=== PATIENT | male | born 1960 | race Caucasian/White ===

== ENCOUNTER 2018-01-23 15:10 | Inpatient (IN) | payer MEDICARE, MEDICAID ==
[2018-01-23 16:53] LABS: % BASOPHILS 1.1 % (0.0-2.0); % EOSINOPHILS 2.4 % (0.0-5.0); % LYMPHOCYTES 21.8 % (20.0-50.0); % MONOCYTES 6.3 % (2.0-10.0); % NEUTROPHILS 68.4 % (40.0-80.0); BASOPHILE ABSOLUTE 0.1 Th/cumm (0-0.2); EOSINOPHILE ABSOLUTE 0.2 Th/cmm (0.1-0.4); HEMATOCRIT 36.2 % (41.0-60); HEMOGLOBIN 12.4 gm/dL (12-16); MEAN CELL VOLUME 88.9 fl (80-99); MEAN CORPUSCULAR HEMOGLOBIN 30.5 pg (26.0-30.0); MEAN CORPUSCULAR HGB CONC 34.3 pg (28.0-36.0); MEAN PLATELET VOLUME 6.7 fl; MONOCYTE ABSOLUTE 0.6 Th/cmm (0.3-1.0); NEUTROPHILE ABSOLUTE 6.4 Th/cmm (1.8-8.0); PLATELET COUNT 278 Th/cmm (150-400); RED BLOOD COUNT 4.08 Mil/cmm (4.30-5.70); WHITE BLOOD COUNT 9.3 Th/cmm (4.8-10.8)
[2018-01-23 17:06] LABS: ALB/GLOB RATIO 1.3 (1.0-1.8); ALKALINE PHOSPHATASE 89 U/L (34-104); ANION GAP 11.7 (7.0-16.0); BILIRUBIN,TOTAL 0.3 mg/dL (0.3-1.0); BUN - UREA NITROGEN 17 mg/dL (7-25); CALCIUM SERUM 9.3 mg/dL (8.6-10.3); CHLORIDE 105 mEq/L (98-107); CREATININE - SERUM 0.8 mg/dL (0.7-1.3); GFR AFRICAN-AMERICAN > 60.0 ml/min (>90); GFR NON AFRICAN-AMERICAN > 60.0 ml/min; GLUCOSE 165 mg/dL (70-105); MAGNESIUM 1.9 mg/dL (1.9-2.7); PHOSPHOROUS 3.2 mg/dL (2.5-5.0); POTASSIUM SERUM 3.7 mEq/L (3.5-5.1); SGOT 20 U/L (13-39); SGPT/ALT 18 U/L (7-52); SODIUM SERUM 137 mEq/L (136-145); TOTAL PROTEIN,SERUM 7.1 gm/dL (6.0-8.3)
--- NOTE | 2018-01-23 18:02 | ED Physician Chart ---
ED Chief Complaint/HPI - Patient Information Date Seen:: 01/23/18 Time Seen:: 15:27 Chief Complaint:: increased agitation, striking at staff History of Present Illness:: increased agitation, striking at staff Allergies:: Allergies Allergy/AdvReac Type Severity Reaction Status Date / Time No Known Allergies Allergy Verified 01/23/18 15:27 Vitals:: Vital Signs - 8 hr 01/23/18 15:27 Temp 98.0 F HR 100 RR 16 BP 169/83 O2 Sat % 100 Historian:: EMS, Medical Records Review:: Nurse's Note Reviewed, Transfer documents Reviewed ED Review of Systems - Review of Systems General/Constitutional: No fever, No chills, No weight loss, No weakness, No diaphoresis, No edema, No loss of appetite Skin: No skin lesions, No rash, No bruising Head: No headache, No light-headedness Eyes: No loss of vision, No pain, No diplopia ENT: No earache, No nasal drainage, No sore throat, No tinnitus Neck: No neck pain, No swelling, No thyromegaly, No stiffness, No mass noted Cardio Vascular: No chest pain, No palpitations, No PND, No orthopnea, No edema Pulmonary: No SOB, No cough, No sputum, No wheezing GI: No nausea, No vomiting, No diarrhea, No pain, No melena, No hematochezia, No constipation, No hematemesis G/U: No dysuria, No frequency, No hematuria Musculoskeletal: No bone or joint pain, No back pain, No muscle pain Endocrine: No polyuria, No polydipsia Psychiatric: Prior psych history, Other (increased agitation) Hematopoietic: No bruising, No lymphadenopathy Allergic/Immuno: No urticaria, No angioedema Neurological: No syncope, No focal symptoms, No weakness, No paresthesia, No headache, No seizure, No dizziness, No confusion, No vertigo ED Past Medical History - Past Medical History Obtainable: No Past Medical History: DM, Other (generalized muscle weakness; folate deficiency anemia) Surgical History: other (acquired absence of R leg) Psychiatricy History: Bipolar Family Medical History - Family Member Mother History Unknown: Yes ED Physical Exam - Physical Examination General/Constitutional: Awake, Well-developed, well-nourished, Alert, No distress, Non-toxic appearing Other Gen/Cons comments:: agitated, required sedation. Head: Atraumatic Eyes: Lids, conjuctiva normal Skin: Nl inspection ENMT: External ears, nose nl, Nasal exam nl, Lips, teeth, gums nl Neck: Nontender, Full ROM w/o pain, No JVD, No nuchal rigidity, No bruit, No mass, No stridor Respiratory: Nl effort/Exclusion, Clear to Auscultation, No Wheeze/Rhonchi/Rales Cardio Vascular: RRR, No murmur, gallop, rubs, NL S1 S2 GI: No tenderness/rebounding/guarding, No organomegaly, No hernia, Normal BS's, Nondistended, No mass/bruits, No McBurney tenderness : No CVA tenderness Other Extremities comments:: R below knee amputation Other Neuro/Psych comments:: agitated Misc: Normal back, No paraspinal tenderness ED Labs/Radiology/EKG Results - Lab Results Results: Laboratory Tests 01/23/18 01/23/18 01/23/18 15:25 16:45 16:45 WBC 9.3 RBC 4.08 L Hgb 12.4 Hct 36.2 L MCV 88.9 MCH 30.5 H MCHC Differential 34.3 RDW 13.0 Plt Count 278 MPV 6.7 Neutrophils % 68.4 Lymphocytes % 21.8 Monocytes % 6.3 Eosinophils % 2.4 Basophils % 1.1 Sodium 137 Potassium 3.7 Chloride 105 Carbon Dioxide 24.0 Anion Gap 11.7 BUN 17 Creatinine 0.8 Est GFR ( Amer) > 60.0 Est GFR (Non-Af Amer) > 60.0 BUN/Creatinine Ratio 21.3 Glucose 165 H POC Glucose 141 H Calcium 9.3 Phosphorus 3.2 Magnesium 1.9 Total Bilirubin 0.3 AST 20 ALT 18 Alkaline Phosphatase 89 Total Protein 7.1 Albumin 4.0 L Globulin 3.1 Albumin/Globulin Ratio 1.3 ED Assessment - Assessment General Assessment: patient finally sedated enough to have blood drawn. Assessment/Comments:: PATIENT MEDICALLY CLEARED FROM A MEDICAL STANDPOINT EXCEPT FOR THE FACT THAT WE DID NOT OBTAIN A URINE ON HIM. ED Septic Shock - . Is Septic Shock (SBP<90, OR Lactate>4 mmol\L) present?: No - <6hrs of presentation: Vital Signs: Vital Signs - 8 hr 10/15/18 15:27 Temp 98.0 F HR 100 RR 16 BP 169/83 O2 Sat % 100 ED Reassessment (Disposition) - Reassessment Reassessment Condition:: Improved - Diagnosis Diagnosis:: Increased agitation. Diabetes mellitus Bipolar Right below knee amputation Muscle weakness. - Patient Disposition Discharge/Transfer:: Acute Care w/in this hosp Admitted to:: [facility] Admitting Medical Physician:: Quang Salazar Admitting Psych Physician:: Sheila Franklin Condition at Disposition:: Stable, Improved
[2018-01-23 19:41] VITALS: BP 108/76
[2018-01-23] MEDS ORDERED: Magnesium Hydroxide (MOM) 30 mL UDC PO PRN (19:42)
[2018-01-23 20:13] LABS: CHOLESTEROL 114 mg/dL (<200); HDL -HIGH DENSITY LIPOPROTEIN 34 mg/dL (23-92); TRIGLYCERIDES 141 mg/dL (<150)
[2018-01-23] MEDS ORDERED: Fleet Enema 135 mL RC PRN (22:28)
--- NOTE | 2018-01-23 22:52 | Psychiatric Evaluation ---
DATE OF SERVICE: 01/23/2018 PSYCHIATRIC INITIAL EVALUATION AND MENTAL STATUS EXAM AGE: 57. SEX: Male. PHYSICIAN: Dr. Franklin. CHIEF COMPLAINT: Agitation and aggressive behavior. HISTORY OF PRESENT ILLNESS: The patient is a 57-year-old male who was transferred from [facility] because of increased agitation and striking out at staff. The patient also has not been able to follow any of staff directions. He also has been increasingly aggressive and striking out at staff. He also has not been compliant with taking medications and in spite of giving him a medication to calm him down, yet he is not able to do so. The patient also has been suspicious and paranoid. PAST PSYCHIATRIC HISTORY: The patient has history of agitation and psychosis and the patient has been taking Seroquel in a dose of 200 mg at bedtime for what seems to be bipolar disorder. PAST MEDICAL HISTORY: The patient has diabetes mellitus that is non-insulin dependent. Also, has a right below-knee amputation. Also, have generalized motor weakness. SOCIAL HISTORY: The patient lives in [facility]. No known alcohol or drug use. No legal issues. ALLERGIES: No known allergies. MENTAL STATUS EXAMINATION: The patient appears his stated age. Anxious. Irritable mood. Flat affect. Thought processes are circumstantial with flight of ideas. The patient denied auditory or visual hallucinations, but seems to be paranoid and delusional. The patient denies any thoughts of suicide or homicide. The patient is alert and oriented to the situation, but not place or person. Intact immediate, recent and remote memories. Poor insight and poor judgment. ASSESSMENT: PRIMARY DIAGNOSES: Bipolar disorder, manic episode, severe, with psychotic features. MEDICAL DIAGNOSES: Diabetes mellitus. Status post below-knee amputation. TREATMENT PLAN: We will monitor the patient's behavior and condition closely. We will start individual as well as milieu psychotherapy. We will continue Seroquel and we will adjust the dose. ESTIMATED LENGTH OF STAY: 5-7 days. THE PATIENT'S STRENGTHS AND WEAKNESSES: The patient's strength is not clear at this time. Weaknesses is his poor impulse control and ineffective coping. AFTER DISCHARGE PLAN: Outpatient treatment and followup, will continue as an outpatient. The patient also will return to [facility]. [facility]# [id number]
--- NOTE | 2018-01-23 22:58 | History & Physical ---
ADMIT DATE: 01/23/2018 HISTORY OF PRESENT ILLNESS: The patient is a 57-year-old male with long history of diabetes mellitus, hypertension, and dementia; admitted to [facility] under Dr. Franklin's service for evaluation and treatment. The patient has been very agitated, psychotic, noncompliant, poor historian. PAST MEDICAL HISTORY: Significant for diabetes mellitus, hypertension, and dementia. PAST SURGICAL HISTORY: No recent surgery. ALLERGIES: None. SOCIAL HISTORY: No smoking, no alcohol. FAMILY HISTORY: Noncontributory. MEDICATIONS: Follow admission reconciliation. REVIEW OF SYSTEMS: RENAL SYSTEM: No history of chronic renal disorder. CARDIOVASCULAR SYSTEM: No coronary artery disease. ENDOCRINE SYSTEM: History of diabetes mellitus. GASTROINTESTINAL SYSTEM: No upper or lower gastrointestinal bleed. NEUROLOGICAL SYSTEM: Seizure disorder. MUSCULOSKELETAL SYSTEM: No muscular dystrophy. HEMATOLOGICAL SYSTEM: No bleeding tendencies. RESPIRATORY SYSTEM: No asthma. GENITOURINARY: No dysuria or hematuria. PHYSICAL EXAMINATION: GENERAL: He is awake, alert, confused. VITAL SIGNS: Temperature 98, heart rate 100, and blood pressure 169/83. HEENT: Normocephalic. Pupils reactive equally to light and accommodation. Sclerae are clear. NECK: Supple. Negative for lymphadenopathy, JVD, or bruit. CHEST: Entry of air bilateral normal. No rhonchi or wheezing. HEART: S1, S2 normal. No murmur, gallop rhythm. ABDOMEN: Soft, bowel sounds positive. EXTREMITIES: No edema. NEUROLOGIC: He is awake, alert, not fully oriented. No focal motor or sensory deficit. Cranial nerves II through XII are intact. LABORATORY DATA: White blood cell 9.3, hemoglobin 12.4, hematocrit 36.2, and platelet is 278. Sodium 137, potassium 3.7, BUN 17, and creatinine 0.8. ASSESSMENT: 1. Diabetes mellitus. 2. Hypertension. 3. Dementia. 4. Psychosis. PLAN: The patient admitted to the hospital under Dr. Franklin's service. Problem addressed during hospitalization is psychosis and dementia. Medical problem addressed at discharge diabetes mellitus and hypertension. The patient is medically stable for activity. Thank you Dr. Franklin for asking us to see your patient. The patient is a full code. JOB# [id number]
[2018-01-24] MEDS: INSULIN ASPART SLIDING SCALE 100 UNITS/ML UNIT SUBQ SCH ×4 (06:39→21:52)
--- NOTE | 2018-01-24 20:49 | Progress Notes ---
DATE: 01/24/2018 SUBJECTIVE: Chart reviewed and the patient interviewed. Also, discussed the patient's condition with the staff and reviewed records and labs. The patient is still extremely irritable and extremely agitated. The patient also is still suspicious and is still easily agitated and still showing poor impulse control. The patient also is confused. He also still needs a lot of redirections. Yesterday, the patient also was aggressive upon admission and the patient was aggressive with the ER staff. Currently, he seems to be slightly calmer and less agitated, but still having flat affect and inappropriate behavior. TREATMENT PLAN: We will monitor the patient's behavior and condition closely. We will also work on behavior modification. I will also continue the patient on Seroquel in a dose of 200 mg at bedtime and will adjust the dose. JOB# [id number]
[2018-01-24] MEDS: Insulin Detemir 100 units/mL 10mL Vial SUBQ SCH (21:52)
--- NOTE | 2018-01-24 22:19 | Internal Medicine Prog Note ---
Internal Medicine Subjective - Subjective Service Date: 01/24/18 Patient seen and examined:: with staff Patient is:: awake, verbal, in bed, talking, confused Per staff patient has:: no adverse event Internal Medicine Objective - Results Result Diagrams: 01/23/18 16:45 01/23/18 16:45 Recent Labs: Laboratory Last Values WBC 9.3 Th/cmm (4.8-10.8) 01/23/18 16:45 RBC 4.08 Mil/cmm (4.30-5.70) L 01/23/18 16:45 Hgb 12.4 gm/dL (12-16) 01/23/18 16:45 Hct 36.2 % (41.0-60) L 01/23/18 16:45 MCV 88.9 fl (80-99) 01/23/18 16:45 MCH 30.5 pg (26.0-30.0) H 01/23/18 16:45 MCHC Differential 34.3 pg (28.0-36.0) 01/23/18 16:45 RDW 13.0 % (11.5-20.0) 01/23/18 16:45 Plt Count 278 Th/cmm (150-400) 01/23/18 16:45 MPV 6.7 fl 01/23/18 16:45 Neutrophils % 68.4 % (40.0-80.0) 01/23/18 16:45 Lymphocytes % 21.8 % (20.0-50.0) 01/23/18 16:45 Monocytes % 6.3 % (2.0-10.0) 01/23/18 16:45 Eosinophils % 2.4 % (0.0-5.0) 01/23/18 16:45 Basophils % 1.1 % (0.0-2.0) 01/23/18 16:45 Sodium 137 mEq/L (136-145) 01/23/18 16:45 Potassium 3.7 mEq/L (3.5-5.1) 01/23/18 16:45 Chloride 105 mEq/L (98-107) 01/23/18 16:45 Carbon Dioxide 24.0 mEq/L (21.0-31.0) 01/23/18 16:45 Anion Gap 11.7 (7.0-16.0) 01/23/18 16:45 BUN 17 mg/dL (7-25) 01/23/18 16:45 Creatinine 0.8 mg/dL (0.7-1.3) 01/23/18 16:45 Est GFR ( Amer) > 60.0 ml/min (>90) 01/23/18 16:45 Est GFR (Non-Af Amer) > 60.0 ml/min 01/23/18 16:45 BUN/Creatinine Ratio 21.3 01/23/18 16:45 Glucose 165 mg/dL (70-105) H 01/23/18 16:45 POC Glucose 134 MG/DL (70 - 105) H 01/24/18 21:52 Calcium 9.3 mg/dL (8.6-10.3) 01/23/18 16:45 Phosphorus 3.2 mg/dL (2.5-5.0) 01/23/18 16:45 Magnesium 1.9 mg/dL (1.9-2.7) 01/23/18 16:45 Total Bilirubin 0.3 mg/dL (0.3-1.0) 01/23/18 16:45 AST 20 U/L (13-39) 01/23/18 16:45 ALT 18 U/L (7-52) 01/23/18 16:45 Alkaline Phosphatase 89 U/L (34-104) 01/23/18 16:45 Total Protein 7.1 gm/dL (6.0-8.3) 01/23/18 16:45 Albumin 4.0 gm/dL (4.2-5.5) L 01/23/18 16:45 Globulin 3.1 gm/dL 01/23/18 16:45 Albumin/Globulin Ratio 1.3 (1.0-1.8) 01/23/18 16:45 Triglycerides 141 mg/dL (<150) 01/23/18 16:45 Cholesterol 114 mg/dL (<200) 01/23/18 16:45 LDL Cholesterol Direct 61 mg/dL (75-193) L 01/23/18 16:45 HDL Cholesterol 34 mg/dL (23-92) 01/23/18 16:45 TSH 1.48 uIU/ml (0.34-5.60) 01/23/18 16:45 - Physical Exam Vitals and I&O: Vital Signs Temp 99.4 F 01/24/18 20:03 Pulse 98 01/24/18 20:03 Resp 18 01/24/18 20:03 BP 125/73 01/24/18 20:03 Pulse Ox 98 01/24/18 20:03 Intake & Output 01/24/18 01/24/18 01/25/18 06:59 18:59 06:59 Intake Total 120 240 Balance 120 240 Weight (lbs) 63.503 kg 63.503 kg Intake: Oral 120 240 Other: # Voids 3 3 # Bowel Movements 0 0 Weight Source Bedscale Bedscale Active Medications: Current Medications Acetaminophen (Tylenol) 650 mg PO Q4HR PRN PRN Reason: Mild Pain / Temp above 100 Stop: 03/24/18 19:41 Bisacodyl (Dulcolax 10 Mg Supp) 10 mg RC Q72H PRN PRN Reason: IF MOM INEFFECTIVE Stop: 03/24/18 22:27 Folic Acid (Folate) 1 mg PO DAILY TIARRA Stop: 03/25/18 08:59 Last Admin: 01/24/18 09:28 Dose: Not Given Insulin Aspart (Novolog Insulin Sliding Scale) 0 units SUBQ ACHS TIARRA; Protocol Stop: 03/25/18 07:29 Last Admin: 01/24/18 21:52 Dose: Not Given Insulin Detemir (Levemir Insulin) 18 units SUBQ HS TIARRA; Protocol Stop: 03/25/18 20:59 Last Admin: 01/24/18 21:52 Dose: Not Given Lorazepam (Ativan) 0.5 mg PO Q4H PRN; Protocol PRN Reason: Anxiety Stop: 03/24/18 19:41 Magnesium Hydroxide (Milk Of Magnesia) 30 ml PO HS PRN PRN Reason: Constipation Quetiapine Fumarate (Seroquel) 200 mg PO HS TIARRA; Protocol Stop: 03/25/18 20:59 Last Admin: 01/24/18 21:49 Dose: 200 mg Sodium Phosphate (Fleet Enema) 135 ml RC PRN PRN PRN Reason: IF DULCOLAX INEFFECTIVE Stop: 03/24/18 22:27 Thiamine HCl (Vitamin B1) 100 mg PO DAILY TIARRA Stop: 03/25/18 08:59 Last Admin: 01/24/18 09:28 Dose: Not Given Zolpidem Tartrate (Ambien) 5 mg PO HS PRN PRN Reason: Insomnia Stop: 03/24/18 19:41 General: demented HEENT: NC/AT, PERRLA, EOMI, anicteric sclerae, throat clear Neck: Supple, No JVD, No thyromegaly, +2 carotid pulse wo bruit, No LAD Cardiovascular: RRR, Normal S1, Normal S2, without murmur Abdomen: soft, non-tender, non-distended Extremities: clear Neurological: no change Internal Medicine Assmt/Plan - Assessment Assessment: 1.DM. 2.HTN. 3.DEMENTIA. 4.PSYCHOSIS - Plan Plan: CONTINUE ON CURRENT MEDICATION AND DIET.
[2018-01-25] MEDS: INSULIN ASPART SLIDING SCALE 100 UNITS/ML UNIT SUBQ SCH ×4 (06:59→20:43)
[2018-01-25] MEDS: Insulin Detemir 100 units/mL 10mL Vial SUBQ SCH (20:43)
--- NOTE | 2018-01-25 21:07 | Internal Medicine Prog Note ---
Internal Medicine Subjective - Subjective Service Date: 01/25/18 Patient seen and examined:: with staff Patient is:: awake, verbal, in bed, talking, confused Per staff patient has:: no adverse event Internal Medicine Objective - Results Result Diagrams: 01/23/18 16:45 01/23/18 16:45 Recent Labs: Laboratory Last Values WBC 9.3 Th/cmm (4.8-10.8) 01/23/18 16:45 RBC 4.08 Mil/cmm (4.30-5.70) L 01/23/18 16:45 Hgb 12.4 gm/dL (12-16) 01/23/18 16:45 Hct 36.2 % (41.0-60) L 01/23/18 16:45 MCV 88.9 fl (80-99) 01/23/18 16:45 MCH 30.5 pg (26.0-30.0) H 01/23/18 16:45 MCHC Differential 34.3 pg (28.0-36.0) 01/23/18 16:45 RDW 13.0 % (11.5-20.0) 01/23/18 16:45 Plt Count 278 Th/cmm (150-400) 01/23/18 16:45 MPV 6.7 fl 01/23/18 16:45 Neutrophils % 68.4 % (40.0-80.0) 01/23/18 16:45 Lymphocytes % 21.8 % (20.0-50.0) 01/23/18 16:45 Monocytes % 6.3 % (2.0-10.0) 01/23/18 16:45 Eosinophils % 2.4 % (0.0-5.0) 01/23/18 16:45 Basophils % 1.1 % (0.0-2.0) 01/23/18 16:45 Sodium 137 mEq/L (136-145) 01/23/18 16:45 Potassium 3.7 mEq/L (3.5-5.1) 01/23/18 16:45 Chloride 105 mEq/L (98-107) 01/23/18 16:45 Carbon Dioxide 24.0 mEq/L (21.0-31.0) 01/23/18 16:45 Anion Gap 11.7 (7.0-16.0) 01/23/18 16:45 BUN 17 mg/dL (7-25) 01/23/18 16:45 Creatinine 0.8 mg/dL (0.7-1.3) 01/23/18 16:45 Est GFR ( Amer) > 60.0 ml/min (>90) 01/23/18 16:45 Est GFR (Non-Af Amer) > 60.0 ml/min 01/23/18 16:45 BUN/Creatinine Ratio 21.3 01/23/18 16:45 Glucose 165 mg/dL (70-105) H 01/23/18 16:45 POC Glucose 134 MG/DL (70 - 105) H 01/24/18 21:52 Calcium 9.3 mg/dL (8.6-10.3) 01/23/18 16:45 Phosphorus 3.2 mg/dL (2.5-5.0) 01/23/18 16:45 Magnesium 1.9 mg/dL (1.9-2.7) 01/23/18 16:45 Total Bilirubin 0.3 mg/dL (0.3-1.0) 01/23/18 16:45 AST 20 U/L (13-39) 01/23/18 16:45 ALT 18 U/L (7-52) 01/23/18 16:45 Alkaline Phosphatase 89 U/L (34-104) 01/23/18 16:45 Total Protein 7.1 gm/dL (6.0-8.3) 01/23/18 16:45 Albumin 4.0 gm/dL (4.2-5.5) L 01/23/18 16:45 Globulin 3.1 gm/dL 01/23/18 16:45 Albumin/Globulin Ratio 1.3 (1.0-1.8) 01/23/18 16:45 Triglycerides 141 mg/dL (<150) 01/23/18 16:45 Cholesterol 114 mg/dL (<200) 01/23/18 16:45 LDL Cholesterol Direct 61 mg/dL (75-193) L 01/23/18 16:45 HDL Cholesterol 34 mg/dL (23-92) 01/23/18 16:45 TSH 1.48 uIU/ml (0.34-5.60) 01/23/18 16:45 - Physical Exam Vitals and I&O: Vital Signs Temp 98 F 01/25/18 20:00 Pulse 90 01/25/18 20:00 Resp 18 01/25/18 20:00 BP 104/56 01/25/18 20:00 Pulse Ox 97 01/25/18 20:00 Intake & Output 01/25/18 01/25/18 01/26/18 06:59 18:59 06:59 Intake Total 240 700 Balance 240 700 Weight (lbs) 63.503 kg Intake: Oral 240 700 Other: # Voids 2 3 # Bowel Movements 1 0 Weight Source Bedscale Active Medications: Current Medications Acetaminophen (Tylenol) 650 mg PO Q4HR PRN PRN Reason: Mild Pain / Temp above 100 Stop: 03/24/18 19:41 Bisacodyl (Dulcolax 10 Mg Supp) 10 mg RC Q72H PRN PRN Reason: IF MOM INEFFECTIVE Stop: 03/24/18 22:27 Folic Acid (Folate) 1 mg PO DAILY TIARRA Stop: 03/25/18 08:59 Last Admin: 01/25/18 09:46 Dose: Not Given Insulin Aspart (Novolog Insulin Sliding Scale) 0 units SUBQ ACHS [facility]; Protocol Stop: 03/25/18 07:29 Last Admin: 01/25/18 20:43 Dose: 2 units Insulin Detemir (Levemir Insulin) 18 units SUBQ HS [facility]; Protocol Stop: 03/25/18 20:59 Last Admin: 01/25/18 20:43 Dose: 18 units Lorazepam (Ativan) 0.5 mg PO Q4H PRN; Protocol PRN Reason: Anxiety Stop: 03/24/18 19:41 Magnesium Hydroxide (Milk Of Magnesia) 30 ml PO HS PRN PRN Reason: Constipation Quetiapine Fumarate (Seroquel) 200 mg PO HS TIARRA; Protocol Stop: 03/25/18 20:59 Last Admin: 01/25/18 20:48 Dose: 200 mg Sodium Phosphate (Fleet Enema) 135 ml RC PRN PRN PRN Reason: IF DULCOLAX INEFFECTIVE Stop: 03/24/18 22:27 Thiamine HCl (Vitamin B1) 100 mg PO DAILY TIARRA Stop: 03/25/18 08:59 Last Admin: 01/25/18 09:46 Dose: Not Given Zolpidem Tartrate (Ambien) 5 mg PO HS PRN PRN Reason: Insomnia Stop: 03/24/18 19:41 General: demented HEENT: NC/AT, PERRLA, EOMI, anicteric sclerae, throat clear Neck: Supple, No JVD, No thyromegaly, +2 carotid pulse wo bruit, No LAD Cardiovascular: RRR, Normal S1, Normal S2, without murmur Abdomen: soft, non-tender, non-distended Extremities: clear Neurological: no change Internal Medicine Assmt/Plan - Assessment Assessment: 1.DM. 2.HTN. 3.DEMENTIA. 4.PSYCHOSIS - Plan Plan: CONTINUE ON CURRENT MEDICATION AND DIET.
[2018-01-26] MEDS: INSULIN ASPART SLIDING SCALE 100 UNITS/ML UNIT SUBQ SCH ×4 (06:49→21:08)
--- NOTE | 2018-01-26 10:43 | Progress Notes ---
DATE: SUBJECTIVE: Chart reviewed and the patient interviewed. Also discussed the patient's condition with the staff and reviewed records and labs. The patient is still confused. The patient also is still agitated at times. The patient also still needs redirections. Yesterday, the patient refused to take morning medications, but he took the Seroquel at night. ASSESSMENT: The patient is still agitated and psychotic. TREATMENT PLAN: Continue to monitor his behavior and his condition closely. Also, continue to work on adjusting psychotropic medications and follow up closely. JOB# [id number]
--- NOTE | 2018-01-26 21:04 | Internal Medicine Prog Note ---
Internal Medicine Subjective - Subjective Service Date: 01/26/18 Patient seen and examined:: with staff Patient is:: awake, verbal, in bed, talking, confused Per staff patient has:: no adverse event Internal Medicine Objective - Results Result Diagrams: 01/23/18 16:45 01/23/18 16:45 Recent Labs: Laboratory Last Values WBC 9.3 Th/cmm (4.8-10.8) 01/23/18 16:45 RBC 4.08 Mil/cmm (4.30-5.70) L 01/23/18 16:45 Hgb 12.4 gm/dL (12-16) 01/23/18 16:45 Hct 36.2 % (41.0-60) L 01/23/18 16:45 MCV 88.9 fl (80-99) 01/23/18 16:45 MCH 30.5 pg (26.0-30.0) H 01/23/18 16:45 MCHC Differential 34.3 pg (28.0-36.0) 01/23/18 16:45 RDW 13.0 % (11.5-20.0) 01/23/18 16:45 Plt Count 278 Th/cmm (150-400) 01/23/18 16:45 MPV 6.7 fl 01/23/18 16:45 Neutrophils % 68.4 % (40.0-80.0) 01/23/18 16:45 Lymphocytes % 21.8 % (20.0-50.0) 01/23/18 16:45 Monocytes % 6.3 % (2.0-10.0) 01/23/18 16:45 Eosinophils % 2.4 % (0.0-5.0) 01/23/18 16:45 Basophils % 1.1 % (0.0-2.0) 01/23/18 16:45 Sodium 137 mEq/L (136-145) 01/23/18 16:45 Potassium 3.7 mEq/L (3.5-5.1) 01/23/18 16:45 Chloride 105 mEq/L (98-107) 01/23/18 16:45 Carbon Dioxide 24.0 mEq/L (21.0-31.0) 01/23/18 16:45 Anion Gap 11.7 (7.0-16.0) 01/23/18 16:45 BUN 17 mg/dL (7-25) 01/23/18 16:45 Creatinine 0.8 mg/dL (0.7-1.3) 01/23/18 16:45 Est GFR ( Amer) > 60.0 ml/min (>90) 01/23/18 16:45 Est GFR (Non-Af Amer) > 60.0 ml/min 01/23/18 16:45 BUN/Creatinine Ratio 21.3 01/23/18 16:45 Glucose 165 mg/dL (70-105) H 01/23/18 16:45 POC Glucose 86 MG/DL (70 - 105) 01/26/18 06:47 Calcium 9.3 mg/dL (8.6-10.3) 01/23/18 16:45 Phosphorus 3.2 mg/dL (2.5-5.0) 01/23/18 16:45 Magnesium 1.9 mg/dL (1.9-2.7) 01/23/18 16:45 Total Bilirubin 0.3 mg/dL (0.3-1.0) 01/23/18 16:45 AST 20 U/L (13-39) 01/23/18 16:45 ALT 18 U/L (7-52) 01/23/18 16:45 Alkaline Phosphatase 89 U/L (34-104) 01/23/18 16:45 Total Protein 7.1 gm/dL (6.0-8.3) 01/23/18 16:45 Albumin 4.0 gm/dL (4.2-5.5) L 01/23/18 16:45 Globulin 3.1 gm/dL 01/23/18 16:45 Albumin/Globulin Ratio 1.3 (1.0-1.8) 01/23/18 16:45 Triglycerides 141 mg/dL (<150) 01/23/18 16:45 Cholesterol 114 mg/dL (<200) 01/23/18 16:45 LDL Cholesterol Direct 61 mg/dL (75-193) L 01/23/18 16:45 HDL Cholesterol 34 mg/dL (23-92) 01/23/18 16:45 TSH 1.48 uIU/ml (0.34-5.60) 01/23/18 16:45 - Physical Exam Vitals and I&O: Vital Signs Temp 98.1 F 01/26/18 20:19 Pulse 85 01/26/18 20:19 Resp 19 01/26/18 20:19 BP 121/72 01/26/18 20:19 Pulse Ox 97 01/26/18 20:19 Intake & Output 01/26/18 01/26/18 01/27/18 06:59 18:59 06:59 Intake Total 120 240 Output Total 2 Balance 120 238 Intake: Oral 120 240 Output: Stool 1 Urine/Stool Mix 1 Other: # Voids 3 1 Active Medications: Current Medications Acetaminophen (Tylenol) 650 mg PO Q4HR PRN PRN Reason: Mild Pain / Temp above 100 Stop: 03/24/18 19:41 Bisacodyl (Dulcolax 10 Mg Supp) 10 mg RC Q72H PRN PRN Reason: IF MOM INEFFECTIVE Stop: 03/24/18 22:27 Folic Acid (Folate) 1 mg PO DAILY TIARRA Stop: 03/25/18 08:59 Last Admin: 01/26/18 09:39 Dose: 1 mg Insulin Aspart (Novolog Insulin Sliding Scale) 0 units SUBQ ACHS [facility]; Protocol Stop: 03/25/18 07:29 Last Admin: 01/26/18 17:20 Dose: Not Given Insulin Detemir (Levemir Insulin) 18 units SUBQ HS [facility]; Protocol Stop: 03/25/18 20:59 Last Admin: 01/25/18 20:43 Dose: 18 units Lorazepam (Ativan) 0.5 mg PO Q4H PRN; Protocol PRN Reason: Anxiety Stop: 03/24/18 19:41 Magnesium Hydroxide (Milk Of Magnesia) 30 ml PO HS PRN PRN Reason: Constipation Quetiapine Fumarate (Seroquel) 200 mg PO HS [facility]; Protocol Stop: 03/25/18 20:59 Last Admin: 01/25/18 20:48 Dose: 200 mg Sodium Phosphate (Fleet Enema) 135 ml RC PRN PRN PRN Reason: IF DULCOLAX INEFFECTIVE Stop: 03/24/18 22:27 Thiamine HCl (Vitamin B1) 100 mg PO DAILY TIARRA Stop: 03/25/18 08:59 Last Admin: 01/26/18 09:39 Dose: 100 mg Zolpidem Tartrate (Ambien) 5 mg PO HS PRN PRN Reason: Insomnia Stop: 12/14/18 19:41 General: demented HEENT: NC/AT, PERRLA, EOMI, anicteric sclerae, throat clear Neck: Supple, No JVD, No thyromegaly, +2 carotid pulse wo bruit, No LAD Cardiovascular: RRR, Normal S1, Normal S2, without murmur Abdomen: soft, non-tender, non-distended Extremities: clear Neurological: no change Internal Medicine Assmt/Plan - Assessment Assessment: 1.DM. 2.HTN. 3.DEMENTIA. 4.PSYCHOSIS - Plan Plan: CONTINUE ON CURRENT MEDICATION AND DIET. Nutritional Asmnt/Malnutr-PDOC - Dietary Evaluation Malnutrition Findings (Please click <Entered> for more info): Nutritional Asmnt/Malnutrition Start: 01/26/18 14: 11 Text: Status: Complete Freq: Protocol: Document 01/26/18 14:11 CM (Rec: 01/26/18 14:12 CM [email or web address]) Nutritional Asmnt/Malnutrition Patient General Information Nutritional Screening Moderate Risk Diagnosis psychosis Pertinent Medical Hx/Surgical Hx DM, muscle weakness, folate deficiency anemia, bipolar, right BKA, HTN, dementia Subjective Information Pt observed to have finished 80-90% of lunch at time of visit. Pt's sri lankan speaking; RD unable to communicate d/t language barrier. Nursing noted PO intake: 100%. Current Diet Order/ Nutrition Support CCHO Pertinent Medications dulcolax, folate, novolog, levemir, MOM, Vit B1 Pertinent Labs 01/24: POC 134 01/23: POC 141, glucose 165, Alb 4.0 Nutritional Hx/Data Height 1.75 m Height (Calculated Centimeters) 175.3 Current Weight (lbs) 63.503 kg Weight (Calculated Kilograms) 63.5 Weight (Calculated Grams) 41548.9 [place] Body Weight 151 lb (adj for right CADE) Body Mass Index (BMI) 20.7 Weight Status Approriate GI Symptoms GI Symptoms None Last BM 01/25 Difficult in: None Food Allergies No Skin Integrity/Comment: right MOHAMUD pau 16 Estimated Nutritional Goals BEE in Kcals: Using Current wt Calories/Kcals/Kg 25-30 Kcals Calculated 1151-5058 Protein: Using Current wt Protein g/k.8-1 Protein Calculated 51-64 g Fluid: ml 0843-5960 (1 ml/kcal) Nutritional Problem No current Nutrition Prob Problem no nutrition dx at this time Malnutrition Alert Is there a minimum of two criteria No selected? Query Text:Check all the applicable criteria. A minimum of two criteria are recommended for diagnosis of either severe or non-severe malnutrition. Malnutrition Related to Morbid Obesity Malnutrition related to morbid obesity No Intervention/Recommendation Comments 1. Continue with CCHO diet as ordered d/t elevated bs and hx of DM. MD to manage insulin regimen for optimal glycemic control 2. Monitor PO intake, wt, labs and skin integrity 3. F/U as low risk in 7 days, 02/02 Expected Outcomes/Goals Expected Outcomes/Goals 1. PO intake to meet at least 75% of nutritional needs 2. Wt stability, skin to remain intact, and nutrition related labs to approach normal limits Reviewed by Mary Gutierrez RD
[2018-01-26] MEDS: Insulin Detemir 100 units/mL 10mL Vial SUBQ SCH (21:08)
--- NOTE | 2018-01-26 23:52 | Progress Notes ---
DATE: 01/26/2018 SUBJECTIVE: Chart reviewed and the patient interviewed. Also discussed the patient's condition with the staff and reviewed records and labs. The patient is still anxious and he is still pacing up and down the unit. Also, he still needs redirections. Otherwise, no major behavioral problems and has been compliant with taking his medications. PLAN: Plan to continue monitoring behavior and condition. Continue to follow up. [facility]# [id number]
[2018-01-27] MEDS: INSULIN ASPART SLIDING SCALE 100 UNITS/ML UNIT SUBQ SCH ×2 (06:30→12:18)
--- NOTE | 2018-01-27 10:27 | Discharge Summary ---
DATE OF DISCHARGE: 01/27/2018 DATE OF DISCHARGE: 01/27/2018. AGE: 57. SEX: Male. PHYSICIAN: Dr. Franklin. FINAL DIAGNOSIS: PRIMARY DIAGNOSIS: Bipolar disorder, manic episode, severe, with psychotic features. REASON FOR HOSPITALIZATION: The patient was admitted to the hospital because of increased agitation and also striking out at staff. HOSPITAL COURSE: The patient continued to be in irritable and angry mood. The patient also was having aggressive behavior upon admission. The patient was given Seroquel in a dose of 200 mg at bedtime that helped the patient's agitation to be better. The patient was not as aggressive and was easier to follow directions and the patient was discharged from the hospital. PHYSICAL EXAMINATION: Showed no major medical problems. AFTER DISCHARGE PLANS: The patient discharged from the hospital with plans to follow him in [facility]. EXPECTED OUTCOME AFTER DISCHARGE: Fair if the patient continues to take the psychotropic medications and follow up with discharge plans. [facility]# [id number]
== END 2018-01-27 16:50 | DRG 885 ==
LOC: ER 15:10 → GERO 17:55
PROVIDERS: ADMIT Psychiatry & Neurology Psychiatry; ATTEND Psychiatry & Neurology Psychiatry
DX: F31.2 Bipolar disorder, current episode manic severe with psychotic features (principal); E11.9 Type 2 diabetes mellitus without complications; I10 Essential (primary) hypertension; F03.90 Unspecified dementia, unspecified severity, without behavioral disturbance, psychotic disturbance, mood disturbance, and anxiety; F29 Unspecified psychosis not due to a substance or known physiological condition; D50.9 Iron deficiency anemia, unspecified; M62.81 Muscle weakness (generalized); Z89.511 Acquired absence of right leg below knee
CPT/HCPCS: 36415-UA; 80053-TC; 80061-TC; 82948-90; 83036-90; 83735-TC; 84100-TC; 84443-TC; 85025-TC; J1815; J2060

== ENCOUNTER 2018-05-10 18:16 | Inpatient (IN) | payer MEDICARE, MEDICAID ==
--- NOTE | 2018-05-10 18:23 | ED Physician Chart ---
ED Chief Complaint/HPI - Patient Information Date Seen:: 05/10/18 Time Seen:: 18:10 Chief Complaint:: Agitation History of Present Illness:: onset x 3 days of agitation and hostile behavior; no report of trauma, H/As, neck pain, SIs, C/P, SOB, Abd. Pain, A/N/V/D/C, fever, chills, or urinary s/s Allergies:: Allergies Allergy/AdvReac Type Severity Reaction Status Date / Time No Known Allergies Allergy Verified 01/23/18 15:27 Historian:: Patient, EMS Review:: Nurse's Note Reviewed, Old Chart Reviewed, EMS run form Reviewed ED Review of Systems - Review of Systems General/Constitutional: No fever, No chills, No weight loss, No weakness, No diaphoresis, No edema, No loss of appetite Skin: No skin lesions, No rash, No bruising Head: No headache, No light-headedness Eyes: No loss of vision, No pain, No diplopia ENT: No earache, No nasal drainage, No sore throat, No tinnitus Neck: No neck pain, No swelling, No thyromegaly, No stiffness, No mass noted Cardio Vascular: No chest pain, No palpitations, No PND, No orthopnea, No edema Pulmonary: No SOB, No cough, No sputum, No wheezing GI: No nausea, No vomiting, No diarrhea, No pain, No melena, No hematochezia, No constipation, No hematemesis G/U: No dysuria, No frequency, No hematuria, No nacturia Musculoskeletal: No bone or joint pain, No back pain, No muscle pain Endocrine: No polyuria, No polydipsia Psychiatric: Prior psych history, Depression, Anxiety, No suicidal ideation, No homicidal ideation, No auditory hallucination, No visual hallucination Hematopoietic: No bruising, No lymphadenopathy Allergic/Immuno: No urticaria, No angioedema Neurological: No syncope, No focal symptoms, No weakness, No paresthesia, No headache, No seizure, No dizziness, No confusion, No vertigo ED Past Medical History - Past Medical History Obtainable: Yes Past Medical History: HTN, DM, Dyslipidemia, PUD/GERD Family History: Diabetes Melitus, HTN Social History: Non Smoker, No Alcohol, No Drug Use, Single, Care Facility Surgical History: None Psychiatricy History: Bipolar Medication: Reviewed Family Medical History - Family Member Mother History Unknown: Yes ED Physical Exam - Physical Examination General/Constitutional: Awake, Well-developed, well-nourished, Alert, No distress, GCS 15, Non-toxic appearing, Ambulatory Head: Atraumatic Eyes: Lids, conjuctiva normal, PERRL, EOMI Skin: Nl inspection, No rash, No skin lesions, No ecchymosis, Well hydrated, No lymphadenopathy ENMT: External ears, nose nl, TM canals nl, Nasal exam nl, Lips, teeth, gums nl , Oropharynx nl, Tonsils nl Neck: Nontender, Full ROM w/o pain, No JVD, No nuchal rigidity, No bruit, No mass, No stridor Respiratory: Nl effort/Exclusion, Clear to Auscultation, No Wheeze/Rhonchi/Rales Cardio Vascular: RRR, No murmur, gallop, rubs, NL S1 S2, Carotid/Femoral/Distal pulses equal bilaterally GI: No tenderness/rebounding/guarding, No organomegaly, No hernia, Normal BS's, Nondistended, No mass/bruits, No McBurney tenderness, Rectum exam nl Other GI comments:: no pulsatile masses : No CVA tenderness Extremities: No tenderness or effusion, Full ROM, normal strength in all extremities, No edema, Normal digits & nails Neuro/Psych: Alert/oriented, DTR's symmetric, Normal sensory exam, Normal motor strength, Judgement/insight normal, Mood normal, Normal gait, No focal deficits Other Neuro/Psych comments:: + Psychomotor Agitation; no SIs; Mood/Affect: Labile Misc: Normal back, No paraspinal tenderness ED Labs/Radiology/EKG Results - Lab Results Comments:: Reviewed - EKG Interpretations Comments:: pt refused EKG ED Septic Shock - . Is Septic Shock (SBP<90, OR Lactate>4 mmol\L) present?: No ED Reassessment (Disposition) - Reassessment Reassessment Condition:: Improved - Diagnosis Diagnosis:: Agitation; Psychosis; Medical Clearance; Bipolar Disorder - Aftercare/Follow up Instructions Aftercare/Follow-Up Instructions:: Counseled pt regarding lab results/diagnosis & need follow up, Counseled pt & family regarding lab results/diagnosis & need follow up - Patient Disposition Discharge/Transfer:: Acute Care w/in this hosp Admitted to:: [facility] Condition at Disposition:: Stable, Improved
[2018-05-10] MEDS ORDERED: Haloperidol Lactate 5 mg/mL 1mL Vial IM STA (18:37)
[2018-05-10] MEDS ORDERED: Haloperidol Lactate 5 mg/mL 1mL Vial ONE (18:41)
[2018-05-10 20:38] LABS: % BASOPHILS 0.8 % (0.0-2.0); % EOSINOPHILS 2.8 % (0.0-5.0); % LYMPHOCYTES 21.6 % (20.0-50.0); % MONOCYTES 7.9 % (2.0-10.0); % NEUTROPHILS 66.9 % (40.0-80.0); BASOPHILE ABSOLUTE 0.1 Th/cumm (0-0.2); EOSINOPHILE ABSOLUTE 0.3 Th/cmm (0.1-0.4); HEMATOCRIT 38.4 % (41.0-60); HEMOGLOBIN 12.7 gm/dL (12-16); MEAN CORPUSCULAR HEMOGLOBIN 29.2 pg (26.0-30.0); MEAN CORPUSCULAR HGB CONC 33.2 pg (28.0-36.0); MEAN PLATELET VOLUME 6.6 fl; MONOCYTE ABSOLUTE 0.7 Th/cmm (0.3-1.0); NEUTROPHILE ABSOLUTE 6.2 Th/cmm (1.8-8.0); PLATELET COUNT 259 Th/cmm (150-400); RED BLOOD COUNT 4.36 Mil/cmm (4.30-5.70); RED CELL DISTRIBUTION WIDTH 12.6 % (11.5-20.0); WHITE BLOOD COUNT 9.3 Th/cmm (4.8-10.8)
[2018-05-10 20:56] LABS: ALB/GLOB RATIO 1.4 (1.0-1.8); ALBUMIN 4.1 gm/dL (4.2-5.5); ALKALINE PHOSPHATASE 80 U/L (34-104); ANION GAP 12.9 (7.0-16.0); BILIRUBIN,TOTAL 0.4 mg/dL (0.3-1.0); BUN - UREA NITROGEN 21 mg/dL (7-25); CALCIUM SERUM 9.9 mg/dL (8.6-10.3); CARBON DIOXIDE 26.6 mEq/L (21.0-31.0); CHLORIDE 104 mEq/L (98-107); CHOLESTEROL 128 mg/dL (<200); GFR AFRICAN-AMERICAN > 60.0 ml/min (>90); GFR NON AFRICAN-AMERICAN > 60.0 ml/min; GLUCOSE 161 mg/dL (70-105); HDL -HIGH DENSITY LIPOPROTEIN 42 mg/dL (23-92); POTASSIUM SERUM 4.5 mEq/L (3.5-5.1); SALICYLATES (ASPIRIN) < 25.0 mg/L (30.0-100.0); SGOT 20 U/L (13-39); SGPT/ALT 16 U/L (7-52); SODIUM SERUM 139 mEq/L (136-145); TRIGLYCERIDES 86 mg/dL (<150)
[2018-05-10 22:26] LABS: ACETAMINOPHEN < 10.0 ug/mL (10.0-30.0)
[2018-05-11 00:16] VITALS: BP 113/78
[2018-05-11] MEDS ORDERED: Maalox 30 mL Cup PO PRN (00:16)
[2018-05-11] MEDS ORDERED: Magnesium Hydroxide (MOM) 30 mL UDC PO PRN (00:51)
--- NOTE | 2018-05-11 20:24 | History & Physical ---
ADMIT DATE: 05/10/2018 HISTORY OF PRESENT ILLNESS: The patient is a 57-year-old male who admitted to our [facility] under Dr. Franklin's service for the treatment. The patient has been psychotic and agitated. No fever, no chills, no nausea, no vomiting. PAST MEDICAL HISTORY: Significant for diabetes mellitus, degenerative joint disease, constipation, dementia, and psychosis. PAST SURGICAL HISTORY: No recent surgery. ALLERGIES: None. SOCIAL HISTORY: No smoking, no alcohol, no drugs. FAMILY HISTORY: Noncontributory. MEDICATIONS: Follow admission reconciliation. REVIEW OF SYSTEMS: RENAL SYSTEM: No history of chronic renal disorder. CARDIOVASCULAR SYSTEM: No coronary artery disease. ENDOCRINE: He has history of diabetes mellitus. GASTROINTESTINAL SYSTEM: No upper or lower gastrointestinal bleed. NEUROLOGICAL SYSTEM: Seizure disorder. SKELETOMUSCULAR SYSTEM: No muscular dystrophy. HEMATOLOGICAL SYSTEM: No bleeding tendency. RESPIRATORY SYSTEM: No asthma. GENITOURINARY: No dysuria or hematuria. PHYSICAL EXAMINATION: GENERAL: He is awake, not coherent. VITAL SIGNS: Temperature is 97.6, heart rate 79, and blood pressure 113/78. HEENT: Normocephalic. Pupils reactive to light and accommodation. Sclerae clear. NECK: Supple. Negative for lymphadenopathy, JVD, or bruit. CHEST: Entry of air bilateral normal. No rhonchi or wheezing. HEART: S1, S2 normal. No murmur or gallop rhythm. ABDOMEN: Soft, bowel sounds positive. EXTREMITIES: No edema. NEUROLOGIC: Awake, alert, mildly confused. No focal motor or sensory deficit. Cranial nerves II through XII intact. LABORATORY DATA: White blood cell 9.3, hemoglobin 12.7, hematocrit 38.4, and platelet 259. Sodium 139, potassium 4.5, BUN 21, and creatinine 1.0. ASSESSMENT: 1. Diabetes mellitus. 2. Degenerative joint disease. 3. Dementia. 4. Psychosis. PLAN: The patient admitted to the hospital under Dr. Franklin's service. Medical problems addressed during hospitalization is psychosis. Medical problems addressed at discharge, diabetes mellitus, depression, and degenerative joint disease. The patient is medically stable for activity. Thank you Dr. Franklin for asking me to see your patient. The patient is a full code. JOB# [id number]
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
--- NOTE | 2018-05-12 21:44 | Internal Medicine Prog Note ---
Internal Medicine Subjective - Subjective Service Date: 05/12/18 Patient seen and examined:: with staff Patient is:: awake, verbal, in bed, confused Per staff patient has:: no adverse event Internal Medicine Objective - Results Result Diagrams: 05/10/18 18:00 05/10/18 18:19 Recent Labs: Laboratory Last Values WBC 9.3 Th/cmm (4.8-10.8) 05/10/18 18:00 RBC 4.36 Mil/cmm (4.30-5.70) 05/10/18 18:00 Hgb 12.7 gm/dL (12-16) 05/10/18 18:00 Hct 38.4 % (41.0-60) L 05/10/18 18:00 MCV 88.0 fl (80-99) 05/10/18 18:00 MCH 29.2 pg (26.0-30.0) 05/10/18 18:00 MCHC Differential 33.2 pg (28.0-36.0) 05/10/18 18:00 RDW 12.6 % (11.5-20.0) 05/10/18 18:00 Plt Count 259 Th/cmm (150-400) 05/10/18 18:00 MPV 6.6 fl 05/10/18 18:00 Neutrophils % 66.9 % (40.0-80.0) 05/10/18 18:00 Lymphocytes % 21.6 % (20.0-50.0) 05/10/18 18:00 Monocytes % 7.9 % (2.0-10.0) 05/10/18 18:00 Eosinophils % 2.8 % (0.0-5.0) 05/10/18 18:00 Basophils % 0.8 % (0.0-2.0) 05/10/18 18:00 Sodium 139 mEq/L (136-145) 05/10/18 18:19 Potassium 4.5 mEq/L (3.5-5.1) 05/10/18 18:19 Chloride 104 mEq/L (98-107) 05/10/18 18:19 Carbon Dioxide 26.6 mEq/L (21.0-31.0) 05/10/18 18: Anion Gap 12.9 (7.0-16.0) 05/10/18 18:19 BUN 21 mg/dL (7-25) 05/10/18 18:19 Creatinine 1.0 mg/dL (0.7-1.3) 05/10/18 18:19 Est GFR ( Amer) > 60.0 ml/min (>90) 05/10/18 18:19 Est GFR (Non-Af Amer) > 60.0 ml/min 05/10/18 18:19 BUN/Creatinine Ratio 21.0 05/10/18 18:19 Glucose 161 mg/dL (70-105) H 05/10/18 18:19 Calcium 9.9 mg/dL (8.6-10.3) 05/10/18 18: Total Bilirubin 0.4 mg/dL (0.3-1.0) 05/10/18 18: AST 20 U/L (13-39) 05/10/18 18:19 ALT 16 U/L (7-52) 05/10/18 18:19 Alkaline Phosphatase 80 U/L (34-104) 05/10/18 18:19 Troponin I < 0.01 ng/mL (0.01-0.05) L 05/10/18 18:19 Total Protein 7.0 gm/dL (6.0-8.3) 05/10/18 18: Albumin 4.1 gm/dL (4.2-5.5) L 05/10/18 18:19 Globulin 2.9 gm/dL 05/10/18 18:19 Albumin/Globulin Ratio 1.4 (1.0-1.8) 05/10/18 18:19 Triglycerides 86 mg/dL (<150) 05/10/18 18:19 Cholesterol 128 mg/dL (<200) 05/10/18 18:19 LDL Cholesterol Direct 90 mg/dL (75-193) 05/10/18 18:19 HDL Cholesterol 42 mg/dL (23-92) 05/10/18 18:19 TSH 3.96 uIU/ml (0.34-5.60) 05/10/18 18:19 Salicylates < 25.0 mg/L (30.0-100.0) L 05/10/18 18:19 Acetaminophen < 10.0 ug/mL (10.0-30.0) L 05/10/18 18:19 Ethyl Alcohol < 10 mg/dL (0-10) 05/10/18 18:19 RPR NONREACTIVE (NONREACTIVE) 05/10/18 18:19 - Physical Exam Vitals and I&O: Vital Signs Temp 97.8 F 05/12/18 14:00 Pulse 101 05/12/18 14:00 Resp 18 05/12/18 19:49 BP 119/73 05/12/18 14:00 Pulse Ox 96 05/12/18 14:00 Intake & Output 05/12/18 05/12/18 05/13/18 06:59 18:59 06:59 Intake Total 360 1200 Balance 360 1200 Intake: Oral 360 1200 Other: # Voids 2 # Bowel Movements 0 1 Stool Characteristics Formed Active Medications: Current Medications Acetaminophen (Tylenol) 650 mg PO Q4HR PRN PRN Reason: Mild Pain / Temp above 100 Stop: 07/10/18 00:15 Al Hydrox/Mg Hydrox/Simethicone (Maalox) 30 ml PO Q4HR PRN PRN Reason: GI DISTRESS Stop: 07/10/18 00:15 Bisacodyl (Dulcolax 10 Mg Supp) 10 mg RC DAILY PRN PRN Reason: Constipation Stop: 07/10/18 00:40 Clonazepam (Klonopin) 1 mg PO BID [facility]; Protocol Stop: 07/11/18 08:59 Last Admin: 05/12/18 16:54 Dose: 1 mg Folic Acid (Folate) 1 mg PO DAILY TIARRA Stop: 07/10/18 08:59 Last Admin: 05/12/18 09:51 Dose: Not Given Lorazepam (Ativan) 0.5 mg PO Q4HR PRN; Protocol PRN Reason: Anxiety Stop: 06/10/18 00:15 Magnesium Hydroxide (Milk Of Magnesia) 30 ml PO HS PRN PRN Reason: Constipation Stop: 07/10/18 00:50 Quetiapine Fumarate (Seroquel) 50 mg PO BID [facility]; Protocol Stop: 07/10/18 08:59 Last Admin: 05/12/18 16:54 Dose: 50 mg Quetiapine Fumarate (Seroquel) 300 mg PO HS [facility]; Protocol Stop: 07/11/18 20:59 Last Admin: 05/12/18 21:02 Dose: 300 mg Thiamine HCl (Vitamin B1) 100 mg PO DAILY [facility] Stop: 07/10/18 08:59 Last Admin: 05/12/18 09:51 Dose: Not Given Zolpidem Tartrate (Ambien) 5 mg PO HS PRN PRN Reason: Insomnia Stop: 07/10/18 00:15 Last Admin: 05/12/18 21:02 Dose: 5 mg General: alert, demented HEENT: NC/AT, PERRLA, EOMI, anicteric sclerae, throat clear Neck: Supple, No JVD, No thyromegaly, +2 carotid pulse wo bruit, No LAD Lungs: CTAB Cardiovascular: RRR, Normal S1, Normal S2, without murmur Abdomen: soft, non-tender, non-distended Extremities: clear Neurological: no change Internal Medicine Assmt/Plan - Assessment Assessment: 1.DM. 2.DJD. 3.DEMENTIA. 4.PSYCHOSIS. - Plan Plan: CONTINUE ON CURRENT MEDICATION AND DIET.
--- NOTE | 2018-05-13 10:02 | Progress Notes ---
DATE: SUBJECTIVE: Chart reviewed and the patient interviewed. Also discussed the patient's condition with the staff and reviewed records and labs. The patient is still confused and agitated. The patient also is still during the interview, was using foul language and rambling in Swedish language. The patient also is resisting care and he is refusing to get her vital signs taken and uncooperative with the nursing staff. Otherwise, the patient is compliant with taking medications with no side effects of medication. ASSESSMENT: The patient is still psychotic and is still agitated and uncooperative. TREATMENT PLAN: We will increase Seroquel to 50 mg twice a day and 300 mg at bedtime. Also, we will add Klonopin 1 mg twice a day and we will continue to monitor his behavior and his condition closely and work on his aggressive behavior and behavior modification. JOB# [id number]
--- NOTE | 2018-05-13 22:00 | General Progress Note ---
Subjective - Review of Systems Service Date: 05/13/18 Subjective: resting comfortably no distress Objective - Results Result Diagrams: 05/10/18 18:00 05/10/18 18: Recent Labs: Laboratory Last Values WBC 9.3 Th/cmm (4.8-10.8) 05/10/18 18:00 RBC 4.36 Mil/cmm (4.30-5.70) 05/10/18 18:00 Hgb 12.7 gm/dL (12-16) 05/10/18 18:00 Hct 38.4 % (41.0-60) L 05/10/18 18:00 MCV 88.0 fl (80-99) 05/10/18 18:00 MCH 29.2 pg (26.0-30.0) 05/10/18 18:00 MCHC Differential 33.2 pg (28.0-36.0) 05/10/18 18:00 RDW 12.6 % (11.5-20.0) 05/10/18 18:00 Plt Count 259 Th/cmm (150-400) 05/10/18 18:00 MPV 6.6 fl 05/10/18 18:00 Neutrophils % 66.9 % (40.0-80.0) 05/10/18 18:00 Lymphocytes % 21.6 % (20.0-50.0) 05/10/18 18:00 Monocytes % 7.9 % (2.0-10.0) 05/10/18 18:00 Eosinophils % 2.8 % (0.0-5.0) 05/10/18 18:00 Basophils % 0.8 % (0.0-2.0) 05/10/18 18:00 Sodium 139 mEq/L (136-145) 05/10/18 18:19 Potassium 4.5 mEq/L (3.5-5.1) 05/10/18 18: Chloride 104 mEq/L (98-107) 05/10/18 18:19 Carbon Dioxide 26.6 mEq/L (21.0-31.0) 05/10/18 18:19 Anion Gap 12.9 (7.0-16.0) 05/10/18 18: BUN 21 mg/dL (7-25) 05/10/18 18: Creatinine 1.0 mg/dL (0.7-1.3) 05/10/18 18:19 Est GFR ( Amer) > 60.0 ml/min (>90) 05/10/18 18: Est GFR (Non-Af Amer) > 60.0 ml/min 05/10/18 18:19 BUN/Creatinine Ratio 21.0 05/10/18 18:19 Glucose 161 mg/dL (70-105) H 05/10/18 18:19 Calcium 9.9 mg/dL (8.6-10.3) 05/10/18 18:19 Total Bilirubin 0.4 mg/dL (0.3-1.0) 05/10/18 18: AST 20 U/L (13-39) 05/10/18 18: ALT 16 U/L (7-52) 05/10/18 18: Alkaline Phosphatase 80 U/L (34-104) 05/10/18 18: Troponin I < 0.01 ng/mL (0.01-0.05) L 05/10/18 18: Total Protein 7.0 gm/dL (6.0-8.3) 05/10/18 18: Albumin 4.1 gm/dL (4.2-5.5) L 05/10/18 18: Globulin 2.9 gm/dL 05/10/18 18: Albumin/Globulin Ratio 1.4 (1.0-1.8) 05/10/18 18:19 Triglycerides 86 mg/dL (<150) 05/10/18 18:19 Cholesterol 128 mg/dL (<200) 05/10/18 18:19 LDL Cholesterol Direct 90 mg/dL (75-193) 05/10/18 18:19 HDL Cholesterol 42 mg/dL (23-92) 05/10/18 18:19 TSH 3.96 uIU/ml (0.34-5.60) 05/10/18 18:19 Salicylates < 25.0 mg/L (30.0-100.0) L 05/10/18 18:19 Acetaminophen < 10.0 ug/mL (10.0-30.0) L 05/10/18 18:19 Ethyl Alcohol < 10 mg/dL (0-10) 05/10/18 18:19 RPR NONREACTIVE (NONREACTIVE) 05/10/18 18:19 - Physical Exam Vitals and I&O: Vital Signs Temp 97.6 F 05/13/18 14:30 Pulse 90 05/13/18 14:30 Resp 18 05/13/18 14:30 BP 142/70 05/13/18 14:30 Pulse Ox 98 05/13/18 14:30 Intake & Output 05/13/18 05/13/18 05/14/18 06:59 18:59 06:59 Intake Total 1200 Balance 1200 Intake: Oral 1200 Other: # Bowel Movements 1 Stool Characteristics Formed Active Medications: Current Medications Acetaminophen (Tylenol) 650 mg PO Q4HR PRN PRN Reason: Mild Pain / Temp above 100 Stop: 07/10/18 00:15 Al Hydrox/Mg Hydrox/Simethicone (Maalox) 30 ml PO Q4HR PRN PRN Reason: GI DISTRESS Stop: 07/10/18 00:15 Bisacodyl (Dulcolax 10 Mg Supp) 10 mg RC DAILY PRN PRN Reason: Constipation Stop: 07/10/18 00:40 Clonazepam (Klonopin) 1 mg PO BID [facility]; Protocol Stop: 07/11/18 08:59 Last Admin: 05/13/18 16:19 Dose: 1 mg Folic Acid (Folate) 1 mg PO DAILY [facility] Stop: 07/10/18 08:59 Last Admin: 05/13/18 09:08 Dose: 1 mg Lorazepam (Ativan) 0.5 mg PO Q4HR PRN; Protocol PRN Reason: Anxiety Stop: 06/10/18 00:15 Magnesium Hydroxide (Milk Of Magnesia) 30 ml PO HS PRN PRN Reason: Constipation Stop: 07/10/18 00:50 Quetiapine Fumarate (Seroquel) 50 mg PO BID [facility]; Protocol Stop: 07/10/18 08:59 Last Admin: 05/13/18 16:19 Dose: 50 mg Quetiapine Fumarate (Seroquel) 300 mg PO HS [facility]; Protocol Stop: 07/11/18 20:59 Last Admin: 05/13/18 21:05 Dose: 300 mg Thiamine HCl (Vitamin B1) 100 mg PO DAILY [facility] Stop: 07/10/18 08:59 Last Admin: 05/13/18 09:08 Dose: 100 mg Zolpidem Tartrate (Ambien) 5 mg PO HS PRN PRN Reason: Insomnia Stop: 07/10/18 00:15 Last Admin: 05/13/18 21:06 Dose: 5 mg General: No acute distress HEENT: Atraumatic, PERRLA Neck: Supple, JVD, Thyromegaly Cardiovascular: Regular rate, Normal S1, Normal S2 Lungs: Clear to auscultation Abdomen: Bowel sounds, Soft Assessment/Plan - Assessment Assessment: 1.DM. 2.DJD. 3.DEMENTIA. 4.PSYCHOSIS. - Plan Plan: continue current treatment Nutritional Asmnt/Malnutr-PDOC - Dietary Evaluation Malnutrition Findings (Please click <Entered> for more info): Nutritional Asmnt/Malnutrition Start: 05/13/18 11: 02 Text: Status: Complete Freq: Protocol: Document 05/13/18 11:02 CHUY (Rec: 05/13/18 11:15 CHUY FISHER- [email or web address]) Nutritional Asmnt/Malnutrition Patient General Information Nutritional Screening Moderate Risk Diagnosis Psychosis Pertinent Medical Hx/Surgical Hx Diabetes, Degenerative joint disease, consitpation, dementia, psychosis, right BKA Subjective Information Spakish speaking patient per EMR. Tolerating current diet order without difficulty. Current Diet Order/ Nutrition Support 60gm CCHO Patient / S.O Not Indicated Pertinent Medications maalox, dulcolax, folate, MOM, Vitamin B1 Pertinent Labs WNL Nutritional Hx/Data Height 1.68 m Height (Calculated Centimeters) 167.6 Current Weight (lbs) 57.606 kg Weight (Calculated Kilograms) 57.6 Weight (Calculated Grams) 67802.2 [place] Body Weight 142 % [place] Body Weight 89 Body Mass Index (BMI) 20.5 Recent Weight Change No Weight Status Approriate GI Symptoms GI Symptoms Constipation Last BM 05/12 x1 Difficult in: None Food Allergies No Cultural/Ethnic/Yarsani Belief none indicated Usual diet at home unknown Skin Integrity/Comment: Elbert 18, intact Current %PO Good (75-100%) Estimated Nutritional Goals BEE in Kcals: Using Current wt Calories/Kcals/Kg 30-35 kcal/kg using CBW 57.7kg Kcals Calculated ~0487-4476 kcal/day Protein: Using Current wt Protein g/k-1.2 gm/kg Protein Calculated ~55-65gm/day Fluid: ml ~0605-9671 ml/day Nutritional Problem 1. Problem Problem No nutrition diagnosis at this time Intervention/Recommendation Comments Continue 60 gm CCHO diet as tolerated by patient. Expected Outcomes/Goals Expected Outcomes/Goals oral intake >75% of meals, weight stable or trend toward IBW, nutrition related labs WNL F/U LR 05/20
--- NOTE | 2018-05-14 13:08 | General Progress Note ---
Subjective - Review of Systems Service Date: 05/14/18 Subjective: resting comfortably agitated on approach says 'you're not a real doctor' together with expletives Objective - Results Result Diagrams: 05/10/18 18:00 05/10/18 18: Recent Labs: Laboratory Last Values WBC 9.3 Th/cmm (4.8-10.8) 05/10/18 18:00 RBC 4.36 Mil/cmm (4.30-5.70) 05/10/18 18:00 Hgb 12.7 gm/dL (12-16) 05/10/18 18:00 Hct 38.4 % (41.0-60) L 05/10/18 18:00 MCV 88.0 fl (80-99) 05/10/18 18:00 MCH 29.2 pg (26.0-30.0) 05/10/18 18:00 MCHC Differential 33.2 pg (28.0-36.0) 05/10/18 18:00 RDW 12.6 % (11.5-20.0) 05/10/18 18:00 Plt Count 259 Th/cmm (150-400) 05/10/18 18:00 MPV 6.6 fl 05/10/18 18:00 Neutrophils % 66.9 % (40.0-80.0) 05/10/18 18:00 Lymphocytes % 21.6 % (20.0-50.0) 05/10/18 18:00 Monocytes % 7.9 % (2.0-10.0) 05/10/18 18:00 Eosinophils % 2.8 % (0.0-5.0) 05/10/18 18:00 Basophils % 0.8 % (0.0-2.0) 05/10/18 18:00 Sodium 139 mEq/L (136-145) 05/10/18 18:19 Potassium 4.5 mEq/L (3.5-5.1) 05/10/18 18: Chloride 104 mEq/L (98-107) 05/10/18 18:19 Carbon Dioxide 26.6 mEq/L (21.0-31.0) 05/10/18 18:19 Anion Gap 12.9 (7.0-16.0) 05/10/18 18:19 BUN 21 mg/dL (7-25) 05/10/18 18:19 Creatinine 1.0 mg/dL (0.7-1.3) 05/10/18 18:19 Est GFR ( Amer) > 60.0 ml/min (>90) 05/10/18 18:19 Est GFR (Non-Af Amer) > 60.0 ml/min 05/10/18 18:19 BUN/Creatinine Ratio 21.0 05/10/18 18:19 Glucose 161 mg/dL (70-105) H 05/10/18 18:19 Calcium 9.9 mg/dL (8.6-10.3) 05/10/18 18: Total Bilirubin 0.4 mg/dL (0.3-1.0) 05/10/18 18: AST 20 U/L (13-39) 05/10/18 18:19 ALT 16 U/L (7-52) 05/10/18 18:19 Alkaline Phosphatase 80 U/L (34-104) 05/10/18 18:19 Troponin I < 0.01 ng/mL (0.01-0.05) L 05/10/18 18:19 Total Protein 7.0 gm/dL (6.0-8.3) 05/10/18 18: Albumin 4.1 gm/dL (4.2-5.5) L 05/10/18 18:19 Globulin 2.9 gm/dL 05/10/18 18:19 Albumin/Globulin Ratio 1.4 (1.0-1.8) 05/10/18 18:19 Triglycerides 86 mg/dL (<150) 05/10/18 18:19 Cholesterol 128 mg/dL (<200) 05/10/18 18:19 LDL Cholesterol Direct 90 mg/dL (75-193) 05/10/18 18:19 HDL Cholesterol 42 mg/dL (23-92) 05/10/18 18:19 TSH 3.96 uIU/ml (0.34-5.60) 05/10/18 18:19 Salicylates < 25.0 mg/L (30.0-100.0) L 05/10/18 18:19 Acetaminophen < 10.0 ug/mL (10.0-30.0) L 05/10/18 18:19 Ethyl Alcohol < 10 mg/dL (0-10) 05/10/18 18:19 RPR NONREACTIVE (NONREACTIVE) 05/10/18 18:19 - Physical Exam Vitals and I&O: Vital Signs Temp 97.6 F 05/13/18 14:30 Pulse 90 05/13/18 14:30 Resp 18 05/13/18 14:30 BP 142/70 05/13/18 14:30 Pulse Ox 98 05/13/18 14:30 Intake & Output 05/13/18 05/14/18 05/14/18 18:59 06:59 18:59 Intake Total 1200 480 Balance 1200 480 Intake: Oral 1200 480 Other: # Voids 2 # Bowel Movements 1 0 Stool Characteristics Formed Active Medications: Current Medications Acetaminophen (Tylenol) 650 mg PO Q4HR PRN PRN Reason: Mild Pain / Temp above 100 Stop: 07/10/18 00:15 Al Hydrox/Mg Hydrox/Simethicone (Maalox) 30 ml PO Q4HR PRN PRN Reason: GI DISTRESS Stop: 07/10/18 00:15 Bisacodyl (Dulcolax 10 Mg Supp) 10 mg RC DAILY PRN PRN Reason: Constipation Stop: 07/10/18 00:40 Clonazepam (Klonopin) 1 mg PO BID [facility]; Protocol Stop: 07/11/18 08:59 Last Admin: 05/13/18 16:19 Dose: 1 mg Folic Acid (Folate) 1 mg PO DAILY [facility] Stop: 07/10/18 08:59 Last Admin: 05/13/18 09:08 Dose: 1 mg Lorazepam (Ativan) 0.5 mg PO Q4HR PRN; Protocol PRN Reason: Anxiety Stop: 06/10/18 00:15 Magnesium Hydroxide (Milk Of Magnesia) 30 ml PO HS PRN PRN Reason: Constipation Stop: 07/10/18 00:50 Quetiapine Fumarate (Seroquel) 50 mg PO BID [facility]; Protocol Stop: 07/10/18 08:59 Last Admin: 05/13/18 16:19 Dose: 50 mg Quetiapine Fumarate (Seroquel) 300 mg PO HS [facility]; Protocol Stop: 07/11/18 20:59 Last Admin: 05/13/18 21:05 Dose: 300 mg Thiamine HCl (Vitamin B1) 100 mg PO DAILY [facility] Stop: 07/10/18 08:59 Last Admin: 05/13/18 09:08 Dose: 100 mg Zolpidem Tartrate (Ambien) 5 mg PO HS PRN PRN Reason: Insomnia Stop: 07/10/18 00:15 Last Admin: 05/13/18 21:06 Dose: 5 mg General: No acute distress HEENT: Atraumatic, EOMI Assessment/Plan - Assessment Assessment: 1.DM. 2.DJD. 3.DEMENTIA. 4.PSYCHOSIS. - Plan Plan: continue current treatment Nutritional Asmnt/Malnutr-PDOC - Dietary Evaluation Malnutrition Findings (Please click <Entered> for more info): Nutritional Asmnt/Malnutrition Start: 05/13/18 11: 02 Text: Status: Complete Freq: Protocol: Document 05/13/18 11:02 CHUY (Rec: 05/13/18 11:15 CHUY FISHER- [email or web address]) Nutritional Asmnt/Malnutrition Patient General Information Nutritional Screening Moderate Risk Diagnosis Psychosis Pertinent Medical Hx/Surgical Hx Diabetes, Degenerative joint disease, consitpation, dementia, psychosis, right BKA Subjective Information Spakish speaking patient per EMR. Tolerating current diet order without difficulty. Current Diet Order/ Nutrition Support 60gm CCHO Patient / S.O Not Indicated Pertinent Medications maalox, dulcolax, folate, MOM, Vitamin B1 Pertinent Labs WNL Nutritional Hx/Data Height 1.68 m Height (Calculated Centimeters) 167.6 Current Weight (lbs) 57.606 kg Weight (Calculated Kilograms) 57.6 Weight (Calculated Grams) 51643.2 [place] Body Weight 142 % [place] Body Weight 89 Body Mass Index (BMI) 20.5 Recent Weight Change No Weight Status Approriate GI Symptoms GI Symptoms Constipation Last BM 2 x1 Difficult in: None Food Allergies No Cultural/Ethnic/Bahai Belief none indicated Usual diet at home unknown Skin Integrity/Comment: Elbert 18, intact Current %PO Good (75-100%) Estimated Nutritional Goals BEE in Kcals: Using Current wt Calories/Kcals/Kg 30-35 kcal/kg using CBW 57.7kg Kcals Calculated ~9735-7712 kcal/day Protein: Using Current wt Protein g/k-1.2 gm/kg Protein Calculated ~55-65gm/day Fluid: ml ~4465-3510 ml/day Nutritional Problem 1. Problem Problem No nutrition diagnosis at this time Intervention/Recommendation Comments Continue 60 gm CCHO diet as tolerated by patient. Expected Outcomes/Goals Expected Outcomes/Goals oral intake >75% of meals, weight stable or trend toward IBW, nutrition related labs WNL F/U LR 05/20
--- NOTE | 2018-05-14 19:05 | Progress Notes ---
DATE: 05/13/2018 SUBJECTIVE: Chart reviewed and the patient interviewed. Also discussed the patient's condition with the staff and reviewed records and labs. The patient is still extremely irritable and extremely agitated. The patient also is guarded and labile. He also is confused and he is calm. The patient is unable to eat on his own and staff has helped him with his feeding. He also still needs lots of redirections and he is still confused and is still threatening in foul language in Maltese. ASSESSMENT: The patient is still agitated and in irritable mood. TREATMENT PLAN: We will monitor his behavior and his condition closely. Also, I started the patient yesterday on Seroquel 50 mg in the morning, but he refused to take it, but he did take the 300 mg at bedtime. We will continue same dose and continue to follow up. JOB# [id number]
--- NOTE | 2018-05-14 22:02 | Progress Notes ---
DATE: 05/14/2018 SUBJECTIVE: Chart reviewed and the patient interviewed. Also discussed the patient's condition with the staff and reviewed records and labs. The patient is still in angry and irritable mood, but seems to be calmer today than yesterday. Also still having labile affect. The patient also is still restless and he is still paranoid. The patient also is still mumbling in [place] language, difficult to understand him. ASSESSMENT: The patient seems to be slightly calmer than before. TREATMENT PLAN: Continue Seroquel same dose. Also, continue adjusting the dose. Also, continue to work on poor impulse control and followup. JOB# [id number]
[2018-05-15] MEDS: Haldol Oral Sol.(concentrate) 10 mg/5 mL Udc PO SCH ×5 (08:45→20:43)
--- NOTE | 2018-05-15 10:08 | Progress Notes ---
DATE: PSYCHIATRIC PROGRESS NOTE SUBJECTIVE: Chart reviewed and the patient interviewed. Also discussed the patient's condition with the staff and reviewed records and labs. The patient is still rambling in [place] language and the patient is still insulting myself and staff using foul language. The patient also is still agitated and in irritable mood. The patient also is still in angry mood and still has difficulty redirections. Also, refusing all his medications all day yesterday and also refusing labs and vital signs to be taken. He is severely paranoid. ASSESSMENT: The patient is still psychotic and agitated. TREATMENT PLAN: It seems that the patient is not very cooperative with taking his oral medications, but try to give the patient liquid, maybe he will prefer liquid and we will change Seroquel in a dose of only 100 mg at bedtime and we will start the patient on Haldol concentrate 5 mg 3 times a day and will continue to follow up his behavior and his condition closely. [facility]# [id number]
--- NOTE | 2018-05-15 22:10 | Internal Medicine Prog Note ---
Internal Medicine Subjective - Subjective Service Date: 05/15/18 Patient seen and examined:: without staff Patient is:: awake, verbal, in bed, confused Per staff patient has:: no adverse event Internal Medicine Objective - Results Result Diagrams: 05/10/18 18:00 05/10/18 18:19 Recent Labs: Laboratory Last Values WBC 9.3 Th/cmm (4.8-10.8) 05/10/18 18:00 RBC 4.36 Mil/cmm (4.30-5.70) 05/10/18 18:00 Hgb 12.7 gm/dL (12-16) 05/10/18 18:00 Hct 38.4 % (41.0-60) L 05/10/18 18:00 MCV 88.0 fl (80-99) 05/10/18 18:00 MCH 29.2 pg (26.0-30.0) 05/10/18 18:00 MCHC Differential 33.2 pg (28.0-36.0) 05/10/18 18:00 RDW 12.6 % (11.5-20.0) 05/10/18 18:00 Plt Count 259 Th/cmm (150-400) 05/10/18 18:00 MPV 6.6 fl 05/10/18 18:00 Neutrophils % 66.9 % (40.0-80.0) 05/10/18 18:00 Lymphocytes % 21.6 % (20.0-50.0) 05/10/18 18:00 Monocytes % 7.9 % (2.0-10.0) 05/10/18 18:00 Eosinophils % 2.8 % (0.0-5.0) 05/10/18 18:00 Basophils % 0.8 % (0.0-2.0) 05/10/18 18:00 Sodium 139 mEq/L (136-145) 05/10/18 18:19 Potassium 4.5 mEq/L (3.5-5.1) 05/10/18 18: Chloride 104 mEq/L (98-107) 05/10/18 18:19 Carbon Dioxide 26.6 mEq/L (21.0-31.0) 05/10/18 18: Anion Gap 12.9 (7.0-16.0) 05/10/18 18:19 BUN 21 mg/dL (7-25) 05/10/18 18:19 Creatinine 1.0 mg/dL (0.7-1.3) 05/10/18 18:19 Est GFR ( Amer) > 60.0 ml/min (>90) 05/10/18 18:19 Est GFR (Non-Af Amer) > 60.0 ml/min 05/10/18 18:19 BUN/Creatinine Ratio 21.0 05/10/18 18:19 Glucose 161 mg/dL (70-105) H 05/10/18 18:19 Calcium 9.9 mg/dL (8.6-10.3) 05/10/18 18: Total Bilirubin 0.4 mg/dL (0.3-1.0) 05/10/18 18: AST 20 U/L (13-39) 05/10/18 18:19 ALT 16 U/L (7-52) 05/10/18 18:19 Alkaline Phosphatase 80 U/L (34-104) 05/10/18 18:19 Troponin I < 0.01 ng/mL (0.01-0.05) L 05/10/18 18:19 Total Protein 7.0 gm/dL (6.0-8.3) 05/10/18 18: Albumin 4.1 gm/dL (4.2-5.5) L 05/10/18 18:19 Globulin 2.9 gm/dL 05/10/18 18:19 Albumin/Globulin Ratio 1.4 (1.0-1.8) 05/10/18 18:19 Triglycerides 86 mg/dL (<150) 05/10/18 18:19 Cholesterol 128 mg/dL (<200) 05/10/18 18:19 LDL Cholesterol Direct 90 mg/dL (75-193) 05/10/18 18:19 HDL Cholesterol 42 mg/dL (23-92) 05/10/18 18:19 TSH 3.96 uIU/ml (0.34-5.60) 05/10/18 18:19 Salicylates < 25.0 mg/L (30.0-100.0) L 05/10/18 18:19 Acetaminophen < 10.0 ug/mL (10.0-30.0) L 05/10/18 18:19 Ethyl Alcohol < 10 mg/dL (0-10) 05/10/18 18:19 RPR NONREACTIVE (NONREACTIVE) 05/10/18 18:19 - Physical Exam Vitals and I&O: Vital Signs Temp 0 F 05/15/18 14:58 Pulse 0 05/15/18 14:58 Resp 0 05/15/18 14:58 BP 0/0 05/15/18 14:58 Pulse Ox 0 05/15/18 14:58 Intake & Output 05/15/18 05/15/18 05/16/18 06:59 18:59 06:59 Intake Total 480 240 Balance 480 240 Intake: Oral 480 240 Other: # Voids 1 2 # Bowel Movements 0 Active Medications: Current Medications Acetaminophen (Tylenol) 650 mg PO Q4HR PRN PRN Reason: Mild Pain / Temp above 100 Stop: 07/10/18 00:15 Al Hydrox/Mg Hydrox/Simethicone (Maalox) 30 ml PO Q4HR PRN PRN Reason: GI DISTRESS Stop: 07/10/18 00:15 Bisacodyl (Dulcolax 10 Mg Supp) 10 mg RC DAILY PRN PRN Reason: Constipation Stop: 07/10/18 00:40 Clonazepam (Klonopin) 1 mg PO BID [facility]; Protocol Stop: 07/11/18 08:59 Last Admin: 05/15/18 16:09 Dose: Not Given Folic Acid (Folate) 1 mg PO DAILY [facility] Stop: 07/10/18 08:59 Last Admin: 05/15/18 14:02 Dose: Not Given Haloperidol Lactate (Haldol Concentrate 10mg/5ml Susp) 5 mg PO TID [facility]; Protocol Stop: 07/14/18 08:59 Last Admin: 05/15/18 20:43 Dose: Not Given Lorazepam (Ativan) 0.5 mg PO Q4HR PRN; Protocol PRN Reason: Anxiety Stop: 06/10/18 00:15 Magnesium Hydroxide (Milk Of Magnesia) 30 ml PO HS PRN PRN Reason: Constipation Stop: 07/10/18 00:50 Quetiapine Fumarate (Seroquel) 100 mg PO HS [facility]; Protocol Stop: 07/14/18 20:59 Last Admin: 05/15/18 20:44 Dose: Not Given Thiamine HCl (Vitamin B1) 100 mg PO DAILY [facility] Stop: 07/10/18 08:59 Last Admin: 05/15/18 14:02 Dose: Not Given Zolpidem Tartrate (Ambien) 5 mg PO HS PRN PRN Reason: Insomnia Stop: 07/10/18 00:15 Last Admin: 05/13/18 21:06 Dose: 5 mg General: alert, demented HEENT: NC/AT, PERRLA, EOMI, anicteric sclerae, throat clear Neck: Supple, No JVD, No thyromegaly, +2 carotid pulse wo bruit, No LAD Lungs: CTAB Cardiovascular: RRR, Normal S1, Normal S2, without murmur Abdomen: soft, non-tender, non-distended Extremities: clear Neurological: no change Internal Medicine Assmt/Plan - Assessment Assessment: 1.DM. 2.DJD. 3.DEMENTIA. 4.PSYCHOSIS. - Plan Plan: CONTINUE ON CURRENT MEDICATION AND DIET. Nutritional Asmnt/Malnutr-PDOC - Dietary Evaluation Malnutrition Findings (Please click <Entered> for more info): Nutritional Asmnt/Malnutrition Start: 05/13/18 11: 02 Text: Status: Complete Freq: Protocol: Document 05/13/18 11:02 CHUY (Rec: 05/13/18 11:15 MMOMEGA FISHER- [email or web address]) Nutritional Asmnt/Malnutrition Patient General Information Nutritional Screening Moderate Risk Diagnosis Psychosis Pertinent Medical Hx/Surgical Hx Diabetes, Degenerative joint disease, consitpation, dementia, psychosis, right BKA Subjective Information Spakish speaking patient per EMR. Tolerating current diet order without difficulty. Current Diet Order/ Nutrition Support 60gm [facility] Patient / S.O Not Indicated Pertinent Medications maalox, dulcolax, folate, MOM, Vitamin B1 Pertinent Labs WNL Nutritional Hx/Data Height 1.68 m Height (Calculated Centimeters) 167.6 Current Weight (lbs) 57.606 kg Weight (Calculated Kilograms) 57.6 Weight (Calculated Grams) 09190.2 [place] Body Weight 142 % [place] Body Weight 89 Body Mass Index (BMI) 20.5 Recent Weight Change No Weight Status Approriate GI Symptoms GI Symptoms Constipation Last BM 2/ x1 Difficult in: None Food Allergies No Cultural/Ethnic/[place] Belief none indicated Usual diet at home unknown Skin Integrity/Comment: Elbert 18, intact Current %PO Good (75-100%) Estimated Nutritional Goals BEE in Kcals: Using Current wt Calories/Kcals/Kg 30-35 kcal/kg using CBW 57.7kg Kcals Calculated ~5396-7120 kcal/day Protein: Using Current wt Protein g/k-1.2 gm/kg Protein Calculated ~55-65gm/day Fluid: ml ~0204-4703 ml/day Nutritional Problem 1. Problem Problem No nutrition diagnosis at this time Intervention/Recommendation Comments Continue 60 gm CCHO diet as tolerated by patient. Expected Outcomes/Goals Expected Outcomes/Goals oral intake >75% of meals, weight stable or trend toward IBW, nutrition related labs WNL F/U LR 05/20
[2018-05-16] MEDS ORDERED: Haloperidol Lactate 5 mg/mL 1mL Vial IM ONE (08:11)
[2018-05-16] MEDS: Haldol Oral Sol.(concentrate) 10 mg/5 mL Udc PO SCH ×3 (10:42→21:19)
--- NOTE | 2018-05-16 21:07 | Internal Medicine Prog Note ---
Internal Medicine Subjective - Subjective Service Date: 05/16/18 Patient seen and examined:: with staff Patient is:: awake, verbal, in bed, confused Per staff patient has:: no adverse event Internal Medicine Objective - Results Result Diagrams: 05/10/18 18:00 05/10/18 18:19 Recent Labs: Laboratory Last Values WBC 9.3 Th/cmm (4.8-10.8) 05/10/18 18:00 RBC 4.36 Mil/cmm (4.30-5.70) 05/10/18 18:00 Hgb 12.7 gm/dL (12-16) 05/10/18 18:00 Hct 38.4 % (41.0-60) L 05/10/18 18:00 MCV 88.0 fl (80-99) 05/10/18 18:00 MCH 29.2 pg (26.0-30.0) 05/10/18 18:00 MCHC Differential 33.2 pg (28.0-36.0) 05/10/18 18:00 RDW 12.6 % (11.5-20.0) 05/10/18 18:00 Plt Count 259 Th/cmm (150-400) 05/10/18 18:00 MPV 6.6 fl 05/10/18 18:00 Neutrophils % 66.9 % (40.0-80.0) 05/10/18 18:00 Lymphocytes % 21.6 % (20.0-50.0) 05/10/18 18:00 Monocytes % 7.9 % (2.0-10.0) 05/10/18 18:00 Eosinophils % 2.8 % (0.0-5.0) 05/10/18 18:00 Basophils % 0.8 % (0.0-2.0) 05/10/18 18:00 Sodium 139 mEq/L (136-145) 05/10/18 18:19 Potassium 4.5 mEq/L (3.5-5.1) 05/10/18 18: Chloride 104 mEq/L (98-107) 05/10/18 18:19 Carbon Dioxide 26.6 mEq/L (21.0-31.0) 05/10/18 18: Anion Gap 12.9 (7.0-16.0) 05/10/18 18:19 BUN 21 mg/dL (7-25) 05/10/18 18:19 Creatinine 1.0 mg/dL (0.7-1.3) 05/10/18 18:19 Est GFR ( Amer) > 60.0 ml/min (>90) 05/10/18 18:19 Est GFR (Non-Af Amer) > 60.0 ml/min 05/10/18 18:19 BUN/Creatinine Ratio 21.0 05/10/18 18:19 Glucose 161 mg/dL (70-105) H 05/10/18 18:19 Calcium 9.9 mg/dL (8.6-10.3) 05/10/18 18: Total Bilirubin 0.4 mg/dL (0.3-1.0) 05/10/18 18: AST 20 U/L (13-39) 05/10/18 18:19 ALT 16 U/L (7-52) 05/10/18 18:19 Alkaline Phosphatase 80 U/L (34-104) 05/10/18 18:19 Troponin I < 0.01 ng/mL (0.01-0.05) L 05/10/18 18:19 Total Protein 7.0 gm/dL (6.0-8.3) 05/10/18 18: Albumin 4.1 gm/dL (4.2-5.5) L 05/10/18 18:19 Globulin 2.9 gm/dL 05/10/18 18:19 Albumin/Globulin Ratio 1.4 (1.0-1.8) 05/10/18 18:19 Triglycerides 86 mg/dL (<150) 05/10/18 18:19 Cholesterol 128 mg/dL (<200) 05/10/18 18:19 LDL Cholesterol Direct 90 mg/dL (75-193) 05/10/18 18:19 HDL Cholesterol 42 mg/dL (23-92) 05/10/18 18:19 TSH 3.96 uIU/ml (0.34-5.60) 05/10/18 18:19 Salicylates < 25.0 mg/L (30.0-100.0) L 05/10/18 18:19 Acetaminophen < 10.0 ug/mL (10.0-30.0) L 05/10/18 18:19 Ethyl Alcohol < 10 mg/dL (0-10) 05/10/18 18:19 RPR NONREACTIVE (NONREACTIVE) 05/10/18 18:19 - Physical Exam Vitals and I&O: Vital Signs Temp 0 F 05/15/18 14:58 Pulse 0 05/15/18 14:58 Resp 0 05/15/18 14:58 BP 0/0 05/15/18 14:58 Pulse Ox 0 05/15/18 14:58 Intake & Output 05/16/18 05/16/18 05/17/18 06:59 18:59 06:59 Intake Total 240 Balance 240 Intake: Oral 240 Other: # Voids 2 Active Medications: Current Medications Acetaminophen (Tylenol) 650 mg PO Q4HR PRN PRN Reason: Mild Pain / Temp above 100 Stop: 07/10/18 00:15 Al Hydrox/Mg Hydrox/Simethicone (Maalox) 30 ml PO Q4HR PRN PRN Reason: GI DISTRESS Stop: 07/10/18 00:15 Bisacodyl (Dulcolax 10 Mg Supp) 10 mg RC DAILY PRN PRN Reason: Constipation Stop: 07/10/18 00:40 Clonazepam (Klonopin) 1 mg PO BID [facility]; Protocol Stop: 07/11/18 08:59 Last Admin: 05/16/18 17:22 Dose: Not Given Folic Acid (Folate) 1 mg PO DAILY [facility] Stop: 07/10/18 08:59 Last Admin: 05/16/18 10:42 Dose: Not Given Haloperidol Lactate (Haldol Concentrate 10mg/5ml Susp) 5 mg PO TID [facility]; Protocol Stop: 07/14/18 08:59 Last Admin: 05/16/18 17:23 Dose: Not Given Lorazepam (Ativan) 0.5 mg PO Q4HR PRN; Protocol PRN Reason: Anxiety Stop: 06/10/18 00:15 Magnesium Hydroxide (Milk Of Magnesia) 30 ml PO HS PRN PRN Reason: Constipation Stop: 07/10/18 00:50 Quetiapine Fumarate (Seroquel) 100 mg PO HS [facility]; Protocol Stop: 07/14/18 20:59 Last Admin: 05/15/18 20:44 Dose: Not Given Thiamine HCl (Vitamin B1) 100 mg PO DAILY [facility] Stop: 07/10/18 08:59 Last Admin: 05/16/18 10:43 Dose: Not Given Zolpidem Tartrate (Ambien) 5 mg PO HS PRN PRN Reason: Insomnia Stop: 07/10/18 00:15 Last Admin: 05/13/18 21:06 Dose: 5 mg General: alert, demented HEENT: NC/AT, PERRLA, EOMI, anicteric sclerae, throat clear Neck: Supple, No JVD, No thyromegaly, +2 carotid pulse wo bruit, No LAD Lungs: CTAB Cardiovascular: RRR, Normal S1, Normal S2, without murmur Abdomen: soft, non-tender, non-distended Extremities: clear Neurological: no change Internal Medicine Assmt/Plan - Assessment Assessment: 1.DM. 2.DJD. 3.DEMENTIA. 4.PSYCHOSIS. - Plan Plan: CONTINUE ON CURRENT MEDICATION AND DIET. Nutritional Asmnt/Malnutr-PDOC - Dietary Evaluation Malnutrition Findings (Please click <Entered> for more info): Nutritional Asmnt/Malnutrition Start: 05/13/18 11: 02 Text: Status: Complete Freq: Protocol: Document 05/13/18 11:02 CHUY (Rec: 05/13/18 11:15 MMOMEGA [email or web address]- [email or web address]) Nutritional Asmnt/Malnutrition Patient General Information Nutritional Screening Moderate Risk Diagnosis Psychosis Pertinent Medical Hx/Surgical Hx Diabetes, Degenerative joint disease, consitpation, dementia, psychosis, right BKA Subjective Information Spakish speaking patient per EMR. Tolerating current diet order without difficulty. Current Diet Order/ Nutrition Support 60gm CCHO Patient / S.O Not Indicated Pertinent Medications maalox, dulcolax, folate, MOM, Vitamin B1 Pertinent Labs WNL Nutritional Hx/Data Height 1.68 m Height (Calculated Centimeters) 167.6 Current Weight (lbs) 57.606 kg Weight (Calculated Kilograms) 57.6 Weight (Calculated Grams) 20042.2 [place] Body Weight 142 % [place] Body Weight 89 Body Mass Index (BMI) 20.5 Recent Weight Change No Weight Status Approriate GI Symptoms GI Symptoms Constipation Last BM 2 x1 Difficult in: None Food Allergies No Cultural/Ethnic/Taoism Belief none indicated Usual diet at home unknown Skin Integrity/Comment: Elbert 18, intact Current %PO Good (75-100%) Estimated Nutritional Goals BEE in Kcals: Using Current wt Calories/Kcals/Kg 30-35 kcal/kg using CBW 57.7kg Kcals Calculated ~6561-4149 kcal/day Protein: Using Current wt Protein g/k-1.2 gm/kg Protein Calculated ~55-65gm/day Fluid: ml ~0939-4281 ml/day Nutritional Problem 1. Problem Problem No nutrition diagnosis at this time Intervention/Recommendation Comments Continue 60 gm CCHO diet as tolerated by patient. Expected Outcomes/Goals Expected Outcomes/Goals oral intake >75% of meals, weight stable or trend toward IBW, nutrition related labs WNL F/U LR 05/20
--- NOTE | 2018-05-16 21:07 | Internal Medicine Prog Note ---
Internal Medicine Subjective - Subjective Service Date: 05/16/18 Patient seen and examined:: with staff Patient is:: awake, verbal, in bed, confused Per staff patient has:: no adverse event Internal Medicine Objective - Results Result Diagrams: 05/10/18 18:00 05/10/18 18:19 Recent Labs: Laboratory Last Values WBC 9.3 Th/cmm (4.8-10.8) 05/10/18 18:00 RBC 4.36 Mil/cmm (4.30-5.70) 05/10/18 18:00 Hgb 12.7 gm/dL (12-16) 05/10/18 18:00 Hct 38.4 % (41.0-60) L 05/10/18 18:00 MCV 88.0 fl (80-99) 05/10/18 18:00 MCH 29.2 pg (26.0-30.0) 05/10/18 18:00 MCHC Differential 33.2 pg (28.0-36.0) 05/10/18 18:00 RDW 12.6 % (11.5-20.0) 05/10/18 18:00 Plt Count 259 Th/cmm (150-400) 05/10/18 18:00 MPV 6.6 fl 05/10/18 18:00 Neutrophils % 66.9 % (40.0-80.0) 05/10/18 18:00 Lymphocytes % 21.6 % (20.0-50.0) 05/10/18 18:00 Monocytes % 7.9 % (2.0-10.0) 05/10/18 18:00 Eosinophils % 2.8 % (0.0-5.0) 05/10/18 18:00 Basophils % 0.8 % (0.0-2.0) 05/10/18 18:00 Sodium 139 mEq/L (136-145) 05/10/18 18:19 Potassium 4.5 mEq/L (3.5-5.1) 05/10/18 18: Chloride 104 mEq/L (98-107) 05/10/18 18:19 Carbon Dioxide 26.6 mEq/L (21.0-31.0) 05/10/18 18: Anion Gap 12.9 (7.0-16.0) 05/10/18 18:19 BUN 21 mg/dL (7-25) 05/10/18 18:19 Creatinine 1.0 mg/dL (0.7-1.3) 05/10/18 18:19 Est GFR ( Amer) > 60.0 ml/min (>90) 05/10/18 18:19 Est GFR (Non-Af Amer) > 60.0 ml/min 05/10/18 18:19 BUN/Creatinine Ratio 21.0 05/10/18 18:19 Glucose 161 mg/dL (70-105) H 05/10/18 18:19 Calcium 9.9 mg/dL (8.6-10.3) 05/10/18 18: Total Bilirubin 0.4 mg/dL (0.3-1.0) 05/10/18 18: AST 20 U/L (13-39) 05/10/18 18:19 ALT 16 U/L (7-52) 05/10/18 18:19 Alkaline Phosphatase 80 U/L (34-104) 05/10/18 18:19 Troponin I < 0.01 ng/mL (0.01-0.05) L 05/10/18 18:19 Total Protein 7.0 gm/dL (6.0-8.3) 05/10/18 18: Albumin 4.1 gm/dL (4.2-5.5) L 05/10/18 18:19 Globulin 2.9 gm/dL 05/10/18 18:19 Albumin/Globulin Ratio 1.4 (1.0-1.8) 05/10/18 18:19 Triglycerides 86 mg/dL (<150) 05/10/18 18:19 Cholesterol 128 mg/dL (<200) 05/10/18 18:19 LDL Cholesterol Direct 90 mg/dL (75-193) 05/10/18 18:19 HDL Cholesterol 42 mg/dL (23-92) 05/10/18 18:19 TSH 3.96 uIU/ml (0.34-5.60) 05/10/18 18:19 Salicylates < 25.0 mg/L (30.0-100.0) L 05/10/18 18:19 Acetaminophen < 10.0 ug/mL (10.0-30.0) L 05/10/18 18:19 Ethyl Alcohol < 10 mg/dL (0-10) 05/10/18 18:19 RPR NONREACTIVE (NONREACTIVE) 05/10/18 18:19 - Physical Exam Vitals and I&O: Vital Signs Temp 0 F 05/15/18 14:58 Pulse 0 05/15/18 14:58 Resp 0 05/15/18 14:58 BP 0/0 05/15/18 14:58 Pulse Ox 0 05/15/18 14:58 Intake & Output 05/16/18 05/16/18 05/17/18 06:59 18:59 06:59 Intake Total 240 Balance 240 Intake: Oral 240 Other: # Voids 2 Active Medications: Current Medications Acetaminophen (Tylenol) 650 mg PO Q4HR PRN PRN Reason: Mild Pain / Temp above 100 Stop: 07/10/18 00:15 Al Hydrox/Mg Hydrox/Simethicone (Maalox) 30 ml PO Q4HR PRN PRN Reason: GI DISTRESS Stop: 07/10/18 00:15 Bisacodyl (Dulcolax 10 Mg Supp) 10 mg RC DAILY PRN PRN Reason: Constipation Stop: 07/10/18 00:40 Clonazepam (Klonopin) 1 mg PO BID [facility]; Protocol Stop: 07/11/18 08:59 Last Admin: 05/16/18 17:22 Dose: Not Given Folic Acid (Folate) 1 mg PO DAILY [facility] Stop: 07/10/18 08:59 Last Admin: 05/16/18 10:42 Dose: Not Given Haloperidol Lactate (Haldol Concentrate 10mg/5ml Susp) 5 mg PO TID [facility]; Protocol Stop: 07/14/18 08:59 Last Admin: 05/16/18 17:23 Dose: Not Given Lorazepam (Ativan) 0.5 mg PO Q4HR PRN; Protocol PRN Reason: Anxiety Stop: 06/10/18 00:15 Magnesium Hydroxide (Milk Of Magnesia) 30 ml PO HS PRN PRN Reason: Constipation Stop: 07/10/18 00:50 Quetiapine Fumarate (Seroquel) 100 mg PO HS [facility]; Protocol Stop: 07/14/18 20:59 Last Admin: 05/15/18 20:44 Dose: Not Given Thiamine HCl (Vitamin B1) 100 mg PO DAILY [facility] Stop: 07/10/18 08:59 Last Admin: 05/16/18 10:43 Dose: Not Given Zolpidem Tartrate (Ambien) 5 mg PO HS PRN PRN Reason: Insomnia Stop: 07/10/18 00:15 Last Admin: 05/13/18 21:06 Dose: 5 mg General: alert, demented HEENT: NC/AT, PERRLA, EOMI, anicteric sclerae, throat clear Neck: Supple, No JVD, No thyromegaly, +2 carotid pulse wo bruit, No LAD Lungs: CTAB Cardiovascular: RRR, Normal S1, Normal S2, without murmur Abdomen: soft, non-tender, non-distended Extremities: clear Neurological: no change Internal Medicine Assmt/Plan - Assessment Assessment: 1.DM. 2.DJD. 3.DEMENTIA. 4.PSYCHOSIS. - Plan Plan: CONTINUE ON CURRENT MEDICATION AND DIET. Nutritional Asmnt/Malnutr-PDOC - Dietary Evaluation Malnutrition Findings (Please click <Entered> for more info): Nutritional Asmnt/Malnutrition Start: 05/13/18 11: 02 Text: Status: Complete Freq: Protocol: Document 05/13/18 11:02 CHUY (Rec: 05/13/18 11:15 MMOMEGA FISHER- [email or web address]) Nutritional Asmnt/Malnutrition Patient General Information Nutritional Screening Moderate Risk Diagnosis Psychosis Pertinent Medical Hx/Surgical Hx Diabetes, Degenerative joint disease, consitpation, dementia, psychosis, right BKA Subjective Information Spakish speaking patient per EMR. Tolerating current diet order without difficulty. Current Diet Order/ Nutrition Support 60gm CCHO Patient / S.O Not Indicated Pertinent Medications maalox, dulcolax, folate, MOM, Vitamin B1 Pertinent Labs WNL Nutritional Hx/Data Height 1.68 m Height (Calculated Centimeters) 167.6 Current Weight (lbs) 57.606 kg Weight (Calculated Kilograms) 57.6 Weight (Calculated Grams) 71401.2 [place] Body Weight 142 % [place] Body Weight 89 Body Mass Index (BMI) 20.5 Recent Weight Change No Weight Status Approriate GI Symptoms GI Symptoms Constipation Last BM 2 x1 Difficult in: None Food Allergies No Cultural/Ethnic/Nondenominational Belief none indicated Usual diet at home unknown Skin Integrity/Comment: Elbert 18, intact Current %PO Good (75-100%) Estimated Nutritional Goals BEE in Kcals: Using Current wt Calories/Kcals/Kg 30-35 kcal/kg using CBW 57.7kg Kcals Calculated ~9366-2713 kcal/day Protein: Using Current wt Protein g/k-1.2 gm/kg Protein Calculated ~55-65gm/day Fluid: ml ~3843-1097 ml/day Nutritional Problem 1. Problem Problem No nutrition diagnosis at this time Intervention/Recommendation Comments Continue 60 gm CCHO diet as tolerated by patient. Expected Outcomes/Goals Expected Outcomes/Goals oral intake >75% of meals, weight stable or trend toward IBW, nutrition related labs WNL F/U LR 05/20
--- NOTE | 2018-05-17 12:26 | Progress Notes ---
DATE: 05/16/2018 SUBJECTIVE: Chart reviewed and the patient interviewed. Also discussed the patient's condition with the staff and reviewed records and labs. The patient is still actively hallucinating and delusional and is still extremely irritable and agitated. The patient also is still suspicious and is still paranoid. The patient also is locking the door in himself and when staff tries to go there to check his vitals or to change him and help him with his ADLs, he gets extremely agitated and extremely irritable. The patient was angry and cursing in a [place] language. When I tried to open the door and tried to talk to him, he weaved with his hands asking to go out of the room. The patient after that became aggressive with the staff and the patient had to be given Haldol, Ativan and Benadryl emergency medications to calm him down. ASSESSMENT: The patient is still agitated and psychotic and uncooperative with the treatments and refused medications. TREATMENT PLAN: Continue to monitor his behavior and his condition closely. Also, continue to work on his agitation and aggressive behavior and continued followup. JOB# [id number]
--- NOTE | 2018-05-17 13:43 | Internal Medicine Prog Note ---
Internal Medicine Subjective - Subjective Service Date: 05/17/18 Patient seen and examined:: with staff Patient is:: awake, verbal, in bed, confused Per staff patient has:: no adverse event Internal Medicine Objective - Results Result Diagrams: 05/10/18 18:00 05/10/18 18:19 Recent Labs: Laboratory Last Values WBC 9.3 Th/cmm (4.8-10.8) 05/10/18 18:00 RBC 4.36 Mil/cmm (4.30-5.70) 05/10/18 18:00 Hgb 12.7 gm/dL (12-16) 05/10/18 18:00 Hct 38.4 % (41.0-60) L 05/10/18 18:00 MCV 88.0 fl (80-99) 05/10/18 18:00 MCH 29.2 pg (26.0-30.0) 05/10/18 18:00 MCHC Differential 33.2 pg (28.0-36.0) 05/10/18 18:00 RDW 12.6 % (11.5-20.0) 05/10/18 18:00 Plt Count 259 Th/cmm (150-400) 05/10/18 18:00 MPV 6.6 fl 05/10/18 18:00 Neutrophils % 66.9 % (40.0-80.0) 05/10/18 18:00 Lymphocytes % 21.6 % (20.0-50.0) 05/10/18 18:00 Monocytes % 7.9 % (2.0-10.0) 05/10/18 18:00 Eosinophils % 2.8 % (0.0-5.0) 05/10/18 18:00 Basophils % 0.8 % (0.0-2.0) 05/10/18 18:00 Sodium 139 mEq/L (136-145) 05/10/18 18:19 Potassium 4.5 mEq/L (3.5-5.1) 05/10/18 18: Chloride 104 mEq/L (98-107) 05/10/18 18:19 Carbon Dioxide 26.6 mEq/L (21.0-31.0) 05/10/18 18: Anion Gap 12.9 (7.0-16.0) 05/10/18 18:19 BUN 21 mg/dL (7-25) 05/10/18 18:19 Creatinine 1.0 mg/dL (0.7-1.3) 05/10/18 18:19 Est GFR ( Amer) > 60.0 ml/min (>90) 05/10/18 18:19 Est GFR (Non-Af Amer) > 60.0 ml/min 05/10/18 18:19 BUN/Creatinine Ratio 21.0 05/10/18 18:19 Glucose 161 mg/dL (70-105) H 05/10/18 18:19 Calcium 9.9 mg/dL (8.6-10.3) 05/10/18 18: Total Bilirubin 0.4 mg/dL (0.3-1.0) 05/10/18 18: AST 20 U/L (13-39) 05/10/18 18:19 ALT 16 U/L (7-52) 05/10/18 18:19 Alkaline Phosphatase 80 U/L (34-104) 05/10/18 18:19 Troponin I < 0.01 ng/mL (0.01-0.05) L 05/10/18 18:19 Total Protein 7.0 gm/dL (6.0-8.3) 05/10/18 18: Albumin 4.1 gm/dL (4.2-5.5) L 05/10/18 18:19 Globulin 2.9 gm/dL 05/10/18 18:19 Albumin/Globulin Ratio 1.4 (1.0-1.8) 05/10/18 18:19 Triglycerides 86 mg/dL (<150) 05/10/18 18:19 Cholesterol 128 mg/dL (<200) 05/10/18 18:19 LDL Cholesterol Direct 90 mg/dL (75-193) 05/10/18 18:19 HDL Cholesterol 42 mg/dL (23-92) 05/10/18 18:19 TSH 3.96 uIU/ml (0.34-5.60) 05/10/18 18:19 Salicylates < 25.0 mg/L (30.0-100.0) L 05/10/18 18:19 Acetaminophen < 10.0 ug/mL (10.0-30.0) L 05/10/18 18:19 Ethyl Alcohol < 10 mg/dL (0-10) 05/10/18 18:19 RPR NONREACTIVE (NONREACTIVE) 05/10/18 18:19 - Physical Exam Vitals and I&O: Vital Signs Temp 0 F 05/15/18 14:58 Pulse 0 05/15/18 14:58 Resp 0 05/15/18 14:58 BP 0/0 05/15/18 14:58 Pulse Ox 0 05/15/18 14:58 Intake & Output 05/16/18 05/17/18 05/17/18 18:59 06:59 18:59 Intake Total 240 Balance 240 Intake: Oral 240 Active Medications: Current Medications Acetaminophen (Tylenol) 650 mg PO Q4HR PRN PRN Reason: Mild Pain / Temp above 100 Stop: 07/10/18 00:15 Al Hydrox/Mg Hydrox/Simethicone (Maalox) 30 ml PO Q4HR PRN PRN Reason: GI DISTRESS Stop: 07/10/18 00:15 Bisacodyl (Dulcolax 10 Mg Supp) 10 mg RC DAILY PRN PRN Reason: Constipation Stop: 07/10/18 00:40 Clonazepam (Klonopin) 1 mg PO BID [facility]; Protocol Stop: 07/11/18 08:59 Last Admin: 05/16/18 17:22 Dose: Not Given Folic Acid (Folate) 1 mg PO DAILY [facility] Stop: 07/10/18 08:59 Last Admin: 05/16/18 10:42 Dose: Not Given Haloperidol Lactate (Haldol Concentrate 10mg/5ml Susp) 5 mg PO TID [facility]; Protocol Stop: 07/14/18 08:59 Last Admin: 05/16/18 21:19 Dose: Not Given Lorazepam (Ativan) 0.5 mg PO Q4HR PRN; Protocol PRN Reason: Anxiety Stop: 06/10/18 00:15 Magnesium Hydroxide (Milk Of Magnesia) 30 ml PO HS PRN PRN Reason: Constipation Stop: 07/10/18 00:50 Quetiapine Fumarate (Seroquel) 100 mg PO HS [facility]; Protocol Stop: 07/14/18 20:59 Last Admin: 05/16/18 21:21 Dose: Not Given Thiamine HCl (Vitamin B1) 100 mg PO DAILY [facility] Stop: 07/10/18 08:59 Last Admin: 05/16/18 10:43 Dose: Not Given Zolpidem Tartrate (Ambien) 5 mg PO HS PRN PRN Reason: Insomnia Stop: 07/10/18 00:15 Last Admin: 05/13/18 21:06 Dose: 5 mg General: alert, demented HEENT: NC/AT, PERRLA, EOMI, anicteric sclerae, throat clear Neck: Supple, No JVD, No thyromegaly, +2 carotid pulse wo bruit, No LAD Lungs: CTAB Cardiovascular: RRR, Normal S1, Normal S2, without murmur Abdomen: soft, non-tender, non-distended Extremities: clear Neurological: no change Internal Medicine Assmt/Plan - Assessment Assessment: 1.DM. 2.DJD. 3.DEMENTIA. 4.PSYCHOSIS. - Plan Plan: CONTINUE ON CURRENT MEDICATION AND DIET. Nutritional Asmnt/Malnutr-PDOC - Dietary Evaluation Malnutrition Findings (Please click <Entered> for more info): Nutritional Asmnt/Malnutrition Start: 05/13/18 11: 02 Text: Status: Complete Freq: Protocol: Document 05/13/18 11:02 CHUY (Rec: 05/13/18 11:15 CHUY PHILLIP- [email or web address]) Nutritional Asmnt/Malnutrition Patient General Information Nutritional Screening Moderate Risk Diagnosis Psychosis Pertinent Medical Hx/Surgical Hx Diabetes, Degenerative joint disease, consitpation, dementia, psychosis, right BKA Subjective Information Spakish speaking patient per EMR. Tolerating current diet order without difficulty. Current Diet Order/ [facility] / S[facility] Not Indicated Pertinent Medications maalox, dulcolax, folate, MOM, Vitamin B1 Pertinent Labs WNL Nutritional Hx/Data Height 1.68 m Height (Calculated Centimeters) 167.6 Current Weight (lbs) 57.606 kg Weight (Calculated Kilograms) 57.6 Weight (Calculated Grams) 46874.2 [place] Body Weight 142 % [place] Body Weight 89 Body Mass Index (BMI) 20.5 Recent Weight Change No Weight Status Approriate GI Symptoms GI Symptoms Constipation Last BM 2 x1 Difficult in: None Food Allergies No Cultural/Ethnic/Taoism Belief none indicated Usual diet at home unknown Skin Integrity/Comment: Elbert 18, intact Current %PO Good (75-100%) Estimated Nutritional Goals BEE in Kcals: Using Current wt Calories/Kcals/Kg 30-35 kcal/kg using CBW 57.7kg Kcals Calculated ~2339-7294 kcal/day Protein: Using Current wt Protein g/k-1.2 gm/kg Protein Calculated ~55-65gm/day Fluid: ml ~3154-1153 ml/day Nutritional Problem 1. Problem Problem No nutrition diagnosis at this time Intervention/Recommendation Comments Continue 60 gm CCHO diet as tolerated by patient. Expected Outcomes/Goals Expected Outcomes/Goals oral intake >75% of meals, weight stable or trend toward IBW, nutrition related labs WNL F/U LR 05/20
[2018-05-17] MEDS: Haldol Oral Sol.(concentrate) 10 mg/5 mL Udc PO SCH ×2 (15:49→21:30)
--- NOTE | 2018-05-17 21:05 | Progress Notes ---
DATE: 05/17/2018 SUBJECTIVE: Chart reviewed and the patient interviewed. Also, discussed the patient's condition with the staff and reviewed records and labs. The patient is still extremely agitated and extremely irritable. The patient also is closing and locking the door on himself and does not allow staff to get in and when staff tried to get in to help him with his ADLs, he yells and screams and uses foul language in [place] and also kicking and hitting them. The patient also has not been eating or drinking at all since his admission and the concern about his getting dehydrated. He also stays in bed, covering his face all the time and refusing any help. This has been the patient's behavior for the last several days. ASSESSMENT: The patient is still actively psychotic and is still considered to be gravely disabled. TREATMENT PLAN: We will place the patient on 5150 and 5250 hold and we will file a [facility] petition in order to get medications started and to help with his psychosis and his current behavior. At the same time, we will continue trial to patient to eat and drink and also to take medications. JOB# [id number]
[2018-05-18] MEDS: Haldol Oral Sol.(concentrate) 10 mg/5 mL Udc PO SCH ×3 (08:09→20:32)
--- NOTE | 2018-05-18 19:25 | Internal Medicine Prog Note ---
Internal Medicine Subjective - Subjective Service Date: 05/18/18 Patient seen and examined:: with staff Patient is:: awake, verbal, in bed, confused Per staff patient has:: no adverse event Internal Medicine Objective - Results Result Diagrams: 05/10/18 18:00 05/10/18 18:19 Recent Labs: Laboratory Last Values WBC 9.3 Th/cmm (4.8-10.8) 05/10/18 18:00 RBC 4.36 Mil/cmm (4.30-5.70) 05/10/18 18:00 Hgb 12.7 gm/dL (12-16) 05/10/18 18:00 Hct 38.4 % (41.0-60) L 05/10/18 18:00 MCV 88.0 fl (80-99) 05/10/18 18:00 MCH 29.2 pg (26.0-30.0) 05/10/18 18:00 MCHC Differential 33.2 pg (28.0-36.0) 05/10/18 18:00 RDW 12.6 % (11.5-20.0) 05/10/18 18:00 Plt Count 259 Th/cmm (150-400) 05/10/18 18:00 MPV 6.6 fl 05/10/18 18:00 Neutrophils % 66.9 % (40.0-80.0) 05/10/18 18:00 Lymphocytes % 21.6 % (20.0-50.0) 05/10/18 18:00 Monocytes % 7.9 % (2.0-10.0) 05/10/18 18:00 Eosinophils % 2.8 % (0.0-5.0) 05/10/18 18:00 Basophils % 0.8 % (0.0-2.0) 05/10/18 18:00 Sodium 139 mEq/L (136-145) 05/10/18 18:19 Potassium 4.5 mEq/L (3.5-5.1) 05/10/18 18: Chloride 104 mEq/L (98-107) 05/10/18 18:19 Carbon Dioxide 26.6 mEq/L (21.0-31.0) 05/10/18 18: Anion Gap 12.9 (7.0-16.0) 05/10/18 18:19 BUN 21 mg/dL (7-25) 05/10/18 18:19 Creatinine 1.0 mg/dL (0.7-1.3) 05/10/18 18:19 Est GFR ( Amer) > 60.0 ml/min (>90) 05/10/18 18:19 Est GFR (Non-Af Amer) > 60.0 ml/min 05/10/18 18:19 BUN/Creatinine Ratio 21.0 05/10/18 18:19 Glucose 161 mg/dL (70-105) H 05/10/18 18:19 Calcium 9.9 mg/dL (8.6-10.3) 05/10/18 18: Total Bilirubin 0.4 mg/dL (0.3-1.0) 05/10/18 18: AST 20 U/L (13-39) 05/10/18 18:19 ALT 16 U/L (7-52) 05/10/18 18:19 Alkaline Phosphatase 80 U/L (34-104) 05/10/18 18:19 Troponin I < 0.01 ng/mL (0.01-0.05) L 05/10/18 18:19 Total Protein 7.0 gm/dL (6.0-8.3) 05/10/18 18: Albumin 4.1 gm/dL (4.2-5.5) L 05/10/18 18:19 Globulin 2.9 gm/dL 05/10/18 18:19 Albumin/Globulin Ratio 1.4 (1.0-1.8) 05/10/18 18:19 Triglycerides 86 mg/dL (<150) 05/10/18 18:19 Cholesterol 128 mg/dL (<200) 05/10/18 18:19 LDL Cholesterol Direct 90 mg/dL (75-193) 05/10/18 18:19 HDL Cholesterol 42 mg/dL (23-92) 05/10/18 18:19 TSH 3.96 uIU/ml (0.34-5.60) 05/10/18 18:19 Salicylates < 25.0 mg/L (30.0-100.0) L 05/10/18 18:19 Acetaminophen < 10.0 ug/mL (10.0-30.0) L 05/10/18 18:19 Ethyl Alcohol < 10 mg/dL (0-10) 05/10/18 18:19 RPR NONREACTIVE (NONREACTIVE) 05/10/18 18:19 - Physical Exam Vitals and I&O: Vital Signs Temp 97.8 F 05/17/18 15:18 Pulse 105 05/17/18 15:18 Resp 20 05/17/18 15:18 BP 112/68 05/17/18 15:18 Pulse Ox 99 05/17/18 15:18 Intake & Output 05/18/18 05/18/18 05/19/18 06:59 18:59 06:59 Intake Total 120 1200 Balance 120 1200 Intake: Oral 120 1200 Other: # Voids 3 3 # Bowel Movements 0 Active Medications: Current Medications Acetaminophen (Tylenol) 650 mg PO Q4HR PRN PRN Reason: Mild Pain / Temp above 100 Stop: 07/10/18 00:15 Al Hydrox/Mg Hydrox/Simethicone (Maalox) 30 ml PO Q4HR PRN PRN Reason: GI DISTRESS Stop: 07/10/18 00:15 Bisacodyl (Dulcolax 10 Mg Supp) 10 mg RC DAILY PRN PRN Reason: Constipation Stop: 07/10/18 00:40 Clonazepam (Klonopin) 1 mg PO BID [facility]; Protocol Stop: 07/11/18 08:59 Last Admin: 05/18/18 17:02 Dose: Not Given Folic Acid (Folate) 1 mg PO DAILY TIARRA Stop: 07/10/18 08:59 Last Admin: 05/18/18 08:09 Dose: Not Given Haloperidol Lactate (Haldol Concentrate 10mg/5ml Susp) 5 mg PO TID [facility]; Protocol Stop: 07/14/18 08:59 Last Admin: 05/18/18 14:59 Dose: Not Given Lorazepam (Ativan) 0.5 mg PO Q4HR PRN; Protocol PRN Reason: Anxiety Stop: 06/10/18 00:15 Magnesium Hydroxide (Milk Of Magnesia) 30 ml PO HS PRN PRN Reason: Constipation Stop: 07/10/18 00:50 Quetiapine Fumarate (Seroquel) 100 mg PO BID [facility]; Protocol Stop: 07/17/18 16:59 Last Admin: 05/18/18 17:02 Dose: Not Given Thiamine HCl (Vitamin B1) 100 mg PO DAILY [facility] Stop: 07/10/18 08:59 Last Admin: 05/18/18 08:09 Dose: Not Given Zolpidem Tartrate (Ambien) 5 mg PO HS PRN PRN Reason: Insomnia Stop: 07/10/18 00:15 Last Admin: 05/13/18 21:06 Dose: 5 mg General: alert, demented HEENT: NC/AT, PERRLA, EOMI, anicteric sclerae, throat clear Neck: Supple, No JVD, No thyromegaly, +2 carotid pulse wo bruit, No LAD Lungs: CTAB Cardiovascular: RRR, Normal S1, Normal S2, without murmur Abdomen: soft, non-tender, non-distended Extremities: clear Neurological: no change Internal Medicine Assmt/Plan - Assessment Assessment: 1.DM. 2.DJD. 3.DEMENTIA. 4.PSYCHOSIS. - Plan Plan: CONTINUE ON CURRENT MEDICATION AND DIET. Nutritional Asmnt/Malnutr-PDOC - Dietary Evaluation Malnutrition Findings (Please click <Entered> for more info): Nutritional Asmnt/Malnutrition Start: 05/13/18 11: 02 Text: Status: Complete Freq: Protocol: Document 05/13/18 11:02 CHUY (Rec: 05/13/18 11:15 CHUY FISHER- [email or web address]) Nutritional Asmnt/Malnutrition Patient General Information Nutritional Screening Moderate Risk Diagnosis Psychosis Pertinent Medical Hx/Surgical Hx Diabetes, Degenerative joint disease, consitpation, dementia, psychosis, right BKA Subjective Information Spakish speaking patient per EMR. Tolerating current diet order without difficulty. Current Diet Order/ [facility] / S.O Not Indicated Pertinent Medications maalox, dulcolax, folate, MOM, Vitamin B1 Pertinent Labs WNL Nutritional Hx/Data Height 1.68 m Height (Calculated Centimeters) 167.6 Current Weight (lbs) 57.606 kg Weight (Calculated Kilograms) 57.6 Weight (Calculated Grams) 79282.2 [place] Body Weight 142 % [place] Body Weight 89 Body Mass Index (BMI) 20.5 Recent Weight Change No Weight Status Approriate GI Symptoms GI Symptoms Constipation Last BM 2/1 x1 Difficult in: None Food Allergies No Cultural/Ethnic/Episcopal Belief none indicated Usual diet at home unknown Skin Integrity/Comment: Elbert 18, intact Current %PO Good (75-100%) Estimated Nutritional Goals BEE in Kcals: Using Current wt Calories/Kcals/Kg 30-35 kcal/kg using CBW 57.7kg Kcals Calculated ~0533-6493 kcal/day Protein: Using Current wt Protein g/k-1.2 gm/kg Protein Calculated ~55-65gm/day Fluid: ml ~7944-0947 ml/day Nutritional Problem 1. Problem Problem No nutrition diagnosis at this time Intervention/Recommendation Comments Continue 60 gm CCHO diet as tolerated by patient. Expected Outcomes/Goals Expected Outcomes/Goals oral intake >75% of meals, weight stable or trend toward IBW, nutrition related labs WNL F/U LR 05/20
[2018-05-19] MEDS: Haldol Oral Sol.(concentrate) 10 mg/5 mL Udc PO SCH ×3 (08:04→20:47)
--- NOTE | 2018-05-19 18:13 | Internal Medicine Prog Note ---
Internal Medicine Subjective - Subjective Service Date: 05/19/18 Patient seen and examined:: with staff Patient is:: awake, verbal, in bed, confused Per staff patient has:: no adverse event Internal Medicine Objective - Results Result Diagrams: 05/10/18 18:00 05/10/18 18:19 Recent Labs: Laboratory Last Values WBC 9.3 Th/cmm (4.8-10.8) 05/10/18 18:00 RBC 4.36 Mil/cmm (4.30-5.70) 05/10/18 18:00 Hgb 12.7 gm/dL (12-16) 05/10/18 18:00 Hct 38.4 % (41.0-60) L 05/10/18 18:00 MCV 88.0 fl (80-99) 05/10/18 18:00 MCH 29.2 pg (26.0-30.0) 05/10/18 18:00 MCHC Differential 33.2 pg (28.0-36.0) 05/10/18 18:00 RDW 12.6 % (11.5-20.0) 05/10/18 18:00 Plt Count 259 Th/cmm (150-400) 05/10/18 18:00 MPV 6.6 fl 05/10/18 18:00 Neutrophils % 66.9 % (40.0-80.0) 05/10/18 18:00 Lymphocytes % 21.6 % (20.0-50.0) 05/10/18 18:00 Monocytes % 7.9 % (2.0-10.0) 05/10/18 18:00 Eosinophils % 2.8 % (0.0-5.0) 05/10/18 18:00 Basophils % 0.8 % (0.0-2.0) 05/10/18 18:00 Sodium 139 mEq/L (136-145) 05/10/18 18:19 Potassium 4.5 mEq/L (3.5-5.1) 05/10/18 18: Chloride 104 mEq/L (98-107) 05/10/18 18:19 Carbon Dioxide 26.6 mEq/L (21.0-31.0) 05/10/18 18: Anion Gap 12.9 (7.0-16.0) 05/10/18 18:19 BUN 21 mg/dL (7-25) 05/10/18 18:19 Creatinine 1.0 mg/dL (0.7-1.3) 05/10/18 18:19 Est GFR ( Amer) > 60.0 ml/min (>90) 05/10/18 18:19 Est GFR (Non-Af Amer) > 60.0 ml/min 05/10/18 18:19 BUN/Creatinine Ratio 21.0 05/10/18 18:19 Glucose 161 mg/dL (70-105) H 05/10/18 18:19 Calcium 9.9 mg/dL (8.6-10.3) 05/10/18 18: Total Bilirubin 0.4 mg/dL (0.3-1.0) 05/10/18 18: AST 20 U/L (13-39) 05/10/18 18:19 ALT 16 U/L (7-52) 05/10/18 18:19 Alkaline Phosphatase 80 U/L (34-104) 05/10/18 18:19 Troponin I < 0.01 ng/mL (0.01-0.05) L 05/10/18 18:19 Total Protein 7.0 gm/dL (6.0-8.3) 05/10/18 18: Albumin 4.1 gm/dL (4.2-5.5) L 05/10/18 18:19 Globulin 2.9 gm/dL 05/10/18 18:19 Albumin/Globulin Ratio 1.4 (1.0-1.8) 05/10/18 18:19 Triglycerides 86 mg/dL (<150) 05/10/18 18:19 Cholesterol 128 mg/dL (<200) 05/10/18 18:19 LDL Cholesterol Direct 90 mg/dL (75-193) 05/10/18 18:19 HDL Cholesterol 42 mg/dL (23-92) 05/10/18 18:19 TSH 3.96 uIU/ml (0.34-5.60) 05/10/18 18:19 Salicylates < 25.0 mg/L (30.0-100.0) L 05/10/18 18:19 Acetaminophen < 10.0 ug/mL (10.0-30.0) L 05/10/18 18:19 Ethyl Alcohol < 10 mg/dL (0-10) 05/10/18 18:19 RPR NONREACTIVE (NONREACTIVE) 05/10/18 18:19 - Physical Exam Vitals and I&O: Vital Signs Temp 98.4 F 05/19/18 14:00 Pulse 74 05/19/18 14:00 Resp 18 05/19/18 14:00 BP 121/74 05/19/18 14:00 Pulse Ox 96 05/19/18 14:00 Intake & Output 05/18/18 05/19/18 05/19/18 18:59 06:59 18:59 Intake Total 1200 120 960 Output Total 1 Balance 1200 119 960 Intake: Oral 1200 120 960 Output: Urine/Stool Mix 1 Other: # Voids 3 1 3 # Bowel Movements 0 1 Active Medications: Current Medications Acetaminophen (Tylenol) 650 mg PO Q4HR PRN PRN Reason: Mild Pain / Temp above 100 Stop: 07/10/18 00:15 Al Hydrox/Mg Hydrox/Simethicone (Maalox) 30 ml PO Q4HR PRN PRN Reason: GI DISTRESS Stop: 07/10/18 00:15 Bisacodyl (Dulcolax 10 Mg Supp) 10 mg RC DAILY PRN PRN Reason: Constipation Stop: 07/10/18 00:40 Clonazepam (Klonopin) 1 mg PO BID [facility]; Protocol Stop: 07/11/18 08:59 Last Admin: 05/19/18 16:05 Dose: Not Given Folic Acid (Folate) 1 mg PO DAILY [facility] Stop: 07/10/18 08:59 Last Admin: 05/19/18 08:04 Dose: Not Given Haloperidol Lactate (Haldol Concentrate 10mg/5ml Susp) 5 mg PO TID [facility]; Protocol Stop: 07/14/18 08:59 Last Admin: 05/19/18 14:47 Dose: Not Given Lorazepam (Ativan) 0.5 mg PO Q4HR PRN; Protocol PRN Reason: Anxiety Stop: 06/10/18 00:15 Magnesium Hydroxide (Milk Of Magnesia) 30 ml PO HS PRN PRN Reason: Constipation Stop: 07/10/18 00:50 Quetiapine Fumarate (Seroquel) 100 mg PO BID [facility]; Protocol Stop: 07/17/18 16:59 Last Admin: 05/19/18 16:05 Dose: Not Given Thiamine HCl (Vitamin B1) 100 mg PO DAILY [facility] Stop: 07/10/18 08:59 Last Admin: 05/19/18 08:04 Dose: Not Given Zolpidem Tartrate (Ambien) 5 mg PO HS PRN PRN Reason: Insomnia Stop: 07/10/18 00:15 Last Admin: 05/13/18 21:06 Dose: 5 mg General: alert, demented HEENT: NC/AT, PERRLA, EOMI, anicteric sclerae, throat clear Neck: Supple, No JVD, No thyromegaly, +2 carotid pulse wo bruit, No LAD Lungs: CTAB Cardiovascular: RRR, Normal S1, Normal S2, without murmur Abdomen: soft, non-tender, non-distended Extremities: clear Neurological: no change Internal Medicine Assmt/Plan - Assessment Assessment: 1.DM. 2.DJD. 3.DEMENTIA. 4.PSYCHOSIS. - Plan Plan: CONTINUE ON CURRENT MEDICATION AND DIET. Nutritional Asmnt/Malnutr-PDOC - Dietary Evaluation Malnutrition Findings (Please click <Entered> for more info): Nutritional Asmnt/Malnutrition Start: 05/13/18 11: 02 Text: Status: Complete Freq: Protocol: Document 05/13/18 11:02 CHUY (Rec: 05/13/18 11:15 CHUY FISHER- FNS1) Nutritional Asmnt/Malnutrition Patient General Information Nutritional Screening Moderate Risk Diagnosis Psychosis Pertinent Medical Hx/Surgical Hx Diabetes, Degenerative joint disease, consitpation, dementia, psychosis, right BKA Subjective Information Spakish speaking patient per EMR. Tolerating current diet order without difficulty. Current Diet Order/ Nutrition [facility] Patient / S.O Not Indicated Pertinent Medications maalox, dulcolax, folate, MOM, Vitamin B1 Pertinent Labs WNL Nutritional Hx/Data Height 1.68 m Height (Calculated Centimeters) 167.6 Current Weight (lbs) 57.606 kg Weight (Calculated Kilograms) 57.6 Weight (Calculated Grams) 33823.2 [place] Body Weight 142 % [place] Body Weight 89 Body Mass Index (BMI) 20.5 Recent Weight Change No Weight Status Approriate GI Symptoms GI Symptoms Constipation Last BM 2/ x1 Difficult in: None Food Allergies No Cultural/Ethnic/Scientologist Belief none indicated Usual diet at home unknown Skin Integrity/Comment: Elbert 18, intact Current %PO Good (75-100%) Estimated Nutritional Goals BEE in Kcals: Using Current wt Calories/Kcals/Kg 30-35 kcal/kg using CBW 57.7kg Kcals Calculated ~6123-7216 kcal/day Protein: Using Current wt Protein g/k-1.2 gm/kg Protein Calculated ~55-65gm/day Fluid: ml ~0802-3160 ml/day Nutritional Problem 1. Problem Problem No nutrition diagnosis at this time Intervention/Recommendation Comments Continue 60 gm CCHO diet as tolerated by patient. Expected Outcomes/Goals Expected Outcomes/Goals oral intake >75% of meals, weight stable or trend toward IBW, nutrition related labs WNL F/U LR 05/20
--- NOTE | 2018-05-19 18:59 | Progress Notes ---
DATE: 05/18/2018 SUBJECTIVE: Chart reviewed and the patient interviewed. Also discussed the patient's condition with the staff and reviewed records and labs. The patient is still in angry and in irritable mood and is still cursing in Ukrainian language. Also is still easily agitated and easily irritable. The patient also still has difficulty following redirections. On the other hand, the patient is currently started to take medications with no side effects of medications and he is taking Seroquel in a dose of 100 mg with no side effects. ASSESSMENT: The patient is still agitated and psychotic. TREATMENT PLAN: Increase Seroquel to 100 mg twice a day and we will continue monitoring his behavior and his condition closely. [facility]# [id number]
[2018-05-20] MEDS: Haldol Oral Sol.(concentrate) 10 mg/5 mL Udc PO SCH ×3 (09:39→21:49)
--- NOTE | 2018-05-20 16:12 | Progress Notes ---
DATE: 05/20/2018 SUBJECTIVE: Case was discussed with staff of the patient, reviewed records. This is a 57-year-old male who was admitted Dr. Franklin in 05/10/2018 because of agitation and aggressive behavior. He came from [facility] because of increasing agitation, angry, irritable, throwing objects towards staff and stacking some of the staff in the facility. Unable to follow staff direction and they can handle him with a history of psychosis, has been on Seroquel and stopped effective, patient continues to be angry, irritable, unpredictable and impulsive, internally preoccupied, not participating in meaningful conversation, so angry, cursing and Kiswahili. He is on Klonopin 1 mg twice a day, Haldol 5 mg 3 times a day, Seroquel 100 mg twice a day with no side effects, no sedation, no nausea, no extrapyramidal symptoms. We will continue outpatient group therapy, milieu therapy, adjust medication as needed. [facility]# [id number]
--- NOTE | 2018-05-20 16:13 | Progress Notes ---
DATE: 05/19/2018 SUBJECTIVE: Chart reviewed and the patient interviewed. Also discussed the patient's condition with the staff and reviewed records and labs. The patient is still in irritable mood and he is still cursing and yelling in Maltese. The patient also is still angry for no apparent reason. Also is still suspicious and is still paranoid. Otherwise, the patient is compliant with taking his medications and no side effects of medications. ASSESSMENT: The patient is still agitated, but he is showing some improvement and he is slightly easier to redirect. TREATMENT PLAN: Continue to monitor behavior and condition. Continue working on behavioral modification and compliance with taking medications. JOB# [id number]
--- NOTE | 2018-05-20 20:30 | Internal Medicine Prog Note ---
Internal Medicine Subjective - Subjective Service Date: 05/20/18 Patient seen and examined:: with staff Patient is:: awake, verbal, in bed, confused Per staff patient has:: no adverse event Internal Medicine Objective - Results Result Diagrams: 05/10/18 18:00 05/10/18 18:19 Recent Labs: Laboratory Last Values WBC 9.3 Th/cmm (4.8-10.8) 05/10/18 18:00 RBC 4.36 Mil/cmm (4.30-5.70) 05/10/18 18:00 Hgb 12.7 gm/dL (12-16) 05/10/18 18:00 Hct 38.4 % (41.0-60) L 05/10/18 18:00 MCV 88.0 fl (80-99) 05/10/18 18:00 MCH 29.2 pg (26.0-30.0) 05/10/18 18:00 MCHC Differential 33.2 pg (28.0-36.0) 05/10/18 18:00 RDW 12.6 % (11.5-20.0) 05/10/18 18:00 Plt Count 259 Th/cmm (150-400) 05/10/18 18:00 MPV 6.6 fl 05/10/18 18:00 Neutrophils % 66.9 % (40.0-80.0) 05/10/18 18:00 Lymphocytes % 21.6 % (20.0-50.0) 05/10/18 18:00 Monocytes % 7.9 % (2.0-10.0) 05/10/18 18:00 Eosinophils % 2.8 % (0.0-5.0) 05/10/18 18:00 Basophils % 0.8 % (0.0-2.0) 05/10/18 18:00 Sodium 139 mEq/L (136-145) 05/10/18 18:19 Potassium 4.5 mEq/L (3.5-5.1) 05/10/18 18: Chloride 104 mEq/L (98-107) 05/10/18 18:19 Carbon Dioxide 26.6 mEq/L (21.0-31.0) 05/10/18 18: Anion Gap 12.9 (7.0-16.0) 05/10/18 18:19 BUN 21 mg/dL (7-25) 05/10/18 18:19 Creatinine 1.0 mg/dL (0.7-1.3) 05/10/18 18:19 Est GFR ( Amer) > 60.0 ml/min (>90) 05/10/18 18:19 Est GFR (Non-Af Amer) > 60.0 ml/min 05/10/18 18:19 BUN/Creatinine Ratio 21.0 05/10/18 18:19 Glucose 161 mg/dL (70-105) H 05/10/18 18:19 Calcium 9.9 mg/dL (8.6-10.3) 05/10/18 18: Total Bilirubin 0.4 mg/dL (0.3-1.0) 05/10/18 18: AST 20 U/L (13-39) 05/10/18 18:19 ALT 16 U/L (7-52) 05/10/18 18:19 Alkaline Phosphatase 80 U/L (34-104) 05/10/18 18:19 Troponin I < 0.01 ng/mL (0.01-0.05) L 05/10/18 18:19 Total Protein 7.0 gm/dL (6.0-8.3) 05/10/18 18: Albumin 4.1 gm/dL (4.2-5.5) L 05/10/18 18:19 Globulin 2.9 gm/dL 05/10/18 18:19 Albumin/Globulin Ratio 1.4 (1.0-1.8) 05/10/18 18:19 Triglycerides 86 mg/dL (<150) 05/10/18 18:19 Cholesterol 128 mg/dL (<200) 05/10/18 18:19 LDL Cholesterol Direct 90 mg/dL (75-193) 05/10/18 18:19 HDL Cholesterol 42 mg/dL (23-92) 05/10/18 18:19 TSH 3.96 uIU/ml (0.34-5.60) 05/10/18 18:19 Salicylates < 25.0 mg/L (30.0-100.0) L 05/10/18 18:19 Acetaminophen < 10.0 ug/mL (10.0-30.0) L 05/10/18 18:19 Ethyl Alcohol < 10 mg/dL (0-10) 05/10/18 18:19 RPR NONREACTIVE (NONREACTIVE) 05/10/18 18:19 - Physical Exam Vitals and I&O: Vital Signs Temp 97.4 F 05/20/18 14:00 Pulse 69 05/20/18 14:00 Resp 20 05/20/18 14:00 BP 105/55 05/20/18 14:00 Pulse Ox 96 05/20/18 14:00 Intake & Output 05/20/18 05/20/18 05/21/18 06:59 18:59 06:59 Intake Total 1350 Balance 1350 Intake: Oral 1350 Other: # Voids 3 # Bowel Movements 0 Active Medications: Current Medications Acetaminophen (Tylenol) 650 mg PO Q4HR PRN PRN Reason: Mild Pain / Temp above 100 Stop: 07/10/18 00:15 Al Hydrox/Mg Hydrox/Simethicone (Maalox) 30 ml PO Q4HR PRN PRN Reason: GI DISTRESS Stop: 07/10/18 00:15 Bisacodyl (Dulcolax 10 Mg Supp) 10 mg RC DAILY PRN PRN Reason: Constipation Stop: 07/10/18 00:40 Clonazepam (Klonopin) 1 mg PO BID [facility]; Protocol Stop: 07/11/18 08:59 Last Admin: 05/20/18 16:15 Dose: Not Given Folic Acid (Folate) 1 mg PO DAILY [facility] Stop: 07/10/18 08:59 Last Admin: 05/20/18 09:39 Dose: Not Given Haloperidol Lactate (Haldol Concentrate 10mg/5ml Susp) 5 mg PO TID [facility]; Protocol Stop: 07/14/18 08:59 Last Admin: 05/20/18 14:28 Dose: Not Given Lorazepam (Ativan) 0.5 mg PO Q4HR PRN; Protocol PRN Reason: Anxiety Stop: 06/10/18 00:15 Magnesium Hydroxide (Milk Of Magnesia) 30 ml PO HS PRN PRN Reason: Constipation Stop: 07/10/18 00:50 Quetiapine Fumarate (Seroquel) 100 mg PO BID [facility]; Protocol Stop: 07/17/18 16:59 Last Admin: 05/20/18 16:15 Dose: Not Given Thiamine HCl (Vitamin B1) 100 mg PO DAILY [facility] Stop: 07/10/18 08:59 Last Admin: 05/20/18 09:40 Dose: Not Given Zolpidem Tartrate (Ambien) 5 mg PO HS PRN PRN Reason: Insomnia Stop: 07/10/18 00:15 Last Admin: 05/13/18 21:06 Dose: 5 mg General: alert, demented HEENT: NC/AT, PERRLA, EOMI, anicteric sclerae, throat clear Neck: Supple, No JVD, No thyromegaly, +2 carotid pulse wo bruit, No LAD Lungs: CTAB Cardiovascular: RRR, Normal S1, Normal S2, without murmur Abdomen: soft, non-tender, non-distended Extremities: clear Neurological: no change Internal Medicine Assmt/Plan - Assessment Assessment: 1.DM. 2.DJD. 3.DEMENTIA. 4.PSYCHOSIS. - Plan Plan: CONTINUE ON CURRENT MEDICATION AND DIET. Nutritional Asmnt/Malnutr-PDOC - Dietary Evaluation Malnutrition Findings (Please click <Entered> for more info): Nutritional Asmnt/Malnutrition Start: 05/13/18 11: 02 Text: Status: Complete Freq: Protocol: Document 05/13/18 11:02 CHUY (Rec: 05/13/18 11:15 MMOMEGA FISHER- [email or web address]) Nutritional Asmnt/Malnutrition Patient General Information Nutritional Screening Moderate Risk Diagnosis Psychosis Pertinent Medical Hx/Surgical Hx Diabetes, Degenerative joint disease, consitpation, dementia, psychosis, right BKA Subjective Information Spakish speaking patient per EMR. Tolerating current diet order without difficulty. Current Diet Order/ [facility] / S.O Not Indicated Pertinent Medications maalox, dulcolax, folate, MOM, Vitamin B1 Pertinent Labs WNL Nutritional Hx/Data Height 1.68 m Height (Calculated Centimeters) 167.6 Current Weight (lbs) 57.606 kg Weight (Calculated Kilograms) 57.6 Weight (Calculated Grams) 67454.2 [place] Body Weight 142 % [place] Body Weight 89 Body Mass Index (BMI) 20.5 Recent Weight Change No Weight Status Approriate GI Symptoms GI Symptoms Constipation Last BM 2/ x1 Difficult in: None Food Allergies No Cultural/Ethnic/Anglican Belief none indicated Usual diet at home unknown Skin Integrity/Comment: Elbert 18, intact Current %PO Good (75-100%) Estimated Nutritional Goals BEE in Kcals: Using Current wt Calories/Kcals/Kg 30-35 kcal/kg using CBW 57.7kg Kcals Calculated ~0956-7756 kcal/day Protein: Using Current wt Protein g/k-1.2 gm/kg Protein Calculated ~55-65gm/day Fluid: ml ~3504-7643 ml/day Nutritional Problem 1. Problem Problem No nutrition diagnosis at this time Intervention/Recommendation Comments Continue 60 gm CCHO diet as tolerated by patient. Expected Outcomes/Goals Expected Outcomes/Goals oral intake >75% of meals, weight stable or trend toward IBW, nutrition related labs WNL F/U LR 05/20
[2018-05-21] MEDS: Haldol Oral Sol.(concentrate) 10 mg/5 mL Udc PO SCH ×3 (09:09→20:58)
[2018-05-21] MEDS ORDERED: GLUCAGON HCl 1 MG KIT IM PRN (11:38)
[2018-05-21] MEDS: INSULIN ASPART SLIDING SCALE 100 UNITS/ML UNIT SUBQ SCH ×2 (17:05→21:03)
--- NOTE | 2018-05-21 20:52 | Internal Medicine Prog Note ---
Internal Medicine Subjective - Subjective Service Date: 05/21/18 Patient is:: awake, verbal, in bed, confused Per staff patient has:: no adverse event Internal Medicine Objective - Results Result Diagrams: 05/10/18 18:00 05/10/18 18: Recent Labs: Laboratory Last Values WBC 9.3 Th/cmm (4.8-10.8) 05/10/18 18:00 RBC 4.36 Mil/cmm (4.30-5.70) 05/10/18 18:00 Hgb 12.7 gm/dL (12-16) 05/10/18 18:00 Hct 38.4 % (41.0-60) L 05/10/18 18:00 MCV 88.0 fl (80-99) 05/10/18 18:00 MCH 29.2 pg (26.0-30.0) 05/10/18 18:00 MCHC Differential 33.2 pg (28.0-36.0) 05/10/18 18:00 RDW 12.6 % (11.5-20.0) 05/10/18 18:00 Plt Count 259 Th/cmm (150-400) 05/10/18 18:00 MPV 6.6 fl 05/10/18 18:00 Neutrophils % 66.9 % (40.0-80.0) 05/10/18 18:00 Lymphocytes % 21.6 % (20.0-50.0) 05/10/18 18:00 Monocytes % 7.9 % (2.0-10.0) 05/10/18 18:00 Eosinophils % 2.8 % (0.0-5.0) 05/10/18 18:00 Basophils % 0.8 % (0.0-2.0) 05/10/18 18:00 Sodium 139 mEq/L (136-145) 05/10/18 18:19 Potassium 4.5 mEq/L (3.5-5.1) 05/10/18 18: Chloride 104 mEq/L (98-107) 05/10/18 18:19 Carbon Dioxide 26.6 mEq/L (21.0-31.0) 05/10/18 18:19 Anion Gap 12.9 (7.0-16.0) 05/10/18 18:19 BUN 21 mg/dL (7-25) 05/10/18 18:19 Creatinine 1.0 mg/dL (0.7-1.3) 05/10/18 18:19 Est GFR ( Amer) > 60.0 ml/min (>90) 05/10/18 18:19 Est GFR (Non-Af Amer) > 60.0 ml/min 05/10/18 18:19 BUN/Creatinine Ratio 21.0 05/10/18 18:19 Glucose 161 mg/dL (70-105) H 05/10/18 18:19 Calcium 9.9 mg/dL (8.6-10.3) 05/10/18 18:19 Total Bilirubin 0.4 mg/dL (0.3-1.0) 05/10/18 18: AST 20 U/L (13-39) 05/10/18 18:19 ALT 16 U/L (7-52) 05/10/18 18:19 Alkaline Phosphatase 80 U/L (34-104) 05/10/18 18: Troponin I < 0.01 ng/mL (0.01-0.05) L 05/10/18 18:19 Total Protein 7.0 gm/dL (6.0-8.3) 05/10/18 18: Albumin 4.1 gm/dL (4.2-5.5) L 05/10/18 18:19 Globulin 2.9 gm/dL 05/10/18 18:19 Albumin/Globulin Ratio 1.4 (1.0-1.8) 05/10/18 18:19 Triglycerides 86 mg/dL (<150) 05/10/18 18:19 Cholesterol 128 mg/dL (<200) 05/10/18 18:19 LDL Cholesterol Direct 90 mg/dL (75-193) 05/10/18 18:19 HDL Cholesterol 42 mg/dL (23-92) 05/10/18 18:19 TSH 3.96 uIU/ml (0.34-5.60) 05/10/18 18:19 Salicylates < 25.0 mg/L (30.0-100.0) L 05/10/18 18:19 Acetaminophen < 10.0 ug/mL (10.0-30.0) L 05/10/18 18:19 Ethyl Alcohol < 10 mg/dL (0-10) 05/10/18 18:19 RPR NONREACTIVE (NONREACTIVE) 05/10/18 18:19 - Physical Exam Vitals and I&O: Vital Signs Temp 98.8 F 05/21/18 18:50 Pulse 79 05/21/18 18:50 Resp 20 05/21/18 18:50 BP 111/70 05/21/18 18:50 Pulse Ox 99 05/21/18 18:50 Intake & Output 05/21/18 05/21/18 05/22/18 06:59 18:59 06:59 Intake Total 120 Balance 120 Intake: Oral 120 Other: # Voids 2 Stool Characteristics Soft Brown Active Medications: Current Medications Acetaminophen (Tylenol) 650 mg PO Q4HR PRN PRN Reason: Mild Pain / Temp above 100 Stop: 07/10/18 00:15 Al Hydrox/Mg Hydrox/Simethicone (Maalox) 30 ml PO Q4HR PRN PRN Reason: GI DISTRESS Stop: 07/10/18 00:15 Bisacodyl (Dulcolax 10 Mg Supp) 10 mg RC DAILY PRN PRN Reason: Constipation Stop: 07/10/18 00:40 Clonazepam (Klonopin) 1 mg PO BID [facility]; Protocol Stop: 07/11/18 08:59 Last Admin: 05/21/18 17:03 Dose: Not Given Dextrose (Glutose 40%) 18.75 gm PO PRN PRN PRN Reason: Blood Glucose less than 70 Stop: 07/20/18 11:37 Folic Acid (Folate) 1 mg PO DAILY TIARRA Stop: 07/10/18 08:59 Last Admin: 05/21/18 09:09 Dose: Not Given Glucagon (Glucagen) 1 mg IM PRN PRN PRN Reason: Blood Glucose less than 70 Stop: 07/20/18 11:37 Haloperidol Lactate (Haldol Concentrate 10mg/5ml Susp) 5 mg PO TID [facility]; Protocol Stop: 07/14/18 08:59 Last Admin: 05/21/18 13:08 Dose: Not Given Insulin Aspart (Novolog Insulin Sliding Scale) 0 units SUBQ ACHS [facility]; Protocol Stop: 07/20/18 16:29 Last Admin: 05/21/18 17:05 Dose: Not Given Lorazepam (Ativan) 0.5 mg PO Q4HR PRN; Protocol PRN Reason: Anxiety Stop: 06/10/18 00:15 Magnesium Hydroxide (Milk Of Magnesia) 30 ml PO HS PRN PRN Reason: Constipation Stop: 07/10/18 00:50 Quetiapine Fumarate (Seroquel) 100 mg PO BID [facility]; Protocol Stop: 07/17/18 16:59 Last Admin: 05/21/18 17:03 Dose: Not Given Thiamine HCl (Vitamin B1) 100 mg PO DAILY TIARRA Stop: 07/10/18 08:59 Last Admin: 05/21/18 09:10 Dose: Not Given Zolpidem Tartrate (Ambien) 5 mg PO HS PRN PRN Reason: Insomnia Stop: 07/10/18 00:15 Last Admin: 05/13/18 21:06 Dose: 5 mg General: alert, demented HEENT: NC/AT, PERRLA, EOMI, anicteric sclerae, throat clear Neck: Supple, No JVD, No thyromegaly, +2 carotid pulse wo bruit, No LAD Lungs: CTAB Cardiovascular: RRR, Normal S1, Normal S2, without murmur Abdomen: soft, non-tender, non-distended Extremities: clear Neurological: no change Internal Medicine Assmt/Plan - Assessment Assessment: 1.DM. 2.DJD. 3.DEMENTIA. 4.PSYCHOSIS. - Plan Plan: CONTINUE ON CURRENT MEDICATION AND DIET. Nutritional Asmnt/Malnutr-PDOC - Dietary Evaluation Malnutrition Findings (Please click <Entered> for more info): Nutritional Asmnt/Malnutrition Start: 05/13/18 11: 02 Text: Status: Complete Freq: Protocol: Document 05/13/18 11:02 CHUY (Rec: 05/13/18 11:15 CHUY FISHER- [email or web address]) Nutritional Asmnt/Malnutrition Patient General Information Nutritional Screening Moderate Risk Diagnosis Psychosis Pertinent Medical Hx/Surgical Hx Diabetes, Degenerative joint disease, consitpation, dementia, psychosis, right BKA Subjective Information Spakish speaking patient per EMR. Tolerating current diet order without difficulty. Current Diet Order/ Nutrition Support 60gm CCHO Patient / S.O Not Indicated Pertinent Medications maalox, dulcolax, folate, MOM, Vitamin B1 Pertinent Labs WNL Nutritional Hx/Data Height 1.68 m Height (Calculated Centimeters) 167.6 Current Weight (lbs) 57.606 kg Weight (Calculated Kilograms) 57.6 Weight (Calculated Grams) 85757.2 Howell Body Weight 142 % Howell Body Weight 89 Body Mass Index (BMI) 20.5 Recent Weight Change No Weight Status Approriate GI Symptoms GI Symptoms Constipation Last BM 2/ x1 Difficult in: None Food Allergies No Cultural/Ethnic/Taoist Belief none indicated Usual diet at home unknown Skin Integrity/Comment: Elbert 18, intact Current %PO Good (75-100%) Estimated Nutritional Goals BEE in Kcals: Using Current wt Calories/Kcals/Kg 30-35 kcal/kg using CBW 57.7kg Kcals Calculated ~3713-5304 kcal/day Protein: Using Current wt Protein g/k-1.2 gm/kg Protein Calculated ~55-65gm/day Fluid: ml ~8000-4043 ml/day Nutritional Problem 1. Problem Problem No nutrition diagnosis at this time Intervention/Recommendation Comments Continue 60 gm CCHO diet as tolerated by patient. Expected Outcomes/Goals Expected Outcomes/Goals oral intake >75% of meals, weight stable or trend toward IBW, nutrition related labs WNL F/U LR 05/20
--- NOTE | 2018-05-22 03:09 | Progress Notes ---
DATE: 05/21/2018 Case was discussed with staff of the patient, reviewed records. The patient continues to be easily agitated, isolating himself, staying in bed, easily angered, irritable, throwing objects towards staff at times, continues to have poor insight, unpredictable, impulsive. He is sleeping better, eating better, compliant with the medication with no side effects, no sedation, no nausea, no extrapyramidal symptoms. We will continue to work with the patient in group therapy, milieu therapy, and adjust the medications as needed. JOB# [id number]
[2018-05-22] MEDS: INSULIN ASPART SLIDING SCALE 100 UNITS/ML UNIT SUBQ SCH ×4 (06:31→20:26)
[2018-05-22] MEDS: Haldol Oral Sol.(concentrate) 10 mg/5 mL Udc PO SCH ×3 (10:37→21:01)
--- NOTE | 2018-05-22 19:09 | Internal Medicine Prog Note ---
Internal Medicine Subjective - Subjective Service Date: 05/22/18 Patient seen and examined:: with staff Patient is:: awake, verbal, in bed, confused Per staff patient has:: no adverse event Internal Medicine Objective - Results Result Diagrams: 05/10/18 18:00 05/10/18 18:19 Recent Labs: Laboratory Last Values WBC 9.3 Th/cmm (4.8-10.8) 05/10/18 18:00 RBC 4.36 Mil/cmm (4.30-5.70) 05/10/18 18:00 Hgb 12.7 gm/dL (12-16) 05/10/18 18:00 Hct 38.4 % (41.0-60) L 05/10/18 18:00 MCV 88.0 fl (80-99) 05/10/18 18:00 MCH 29.2 pg (26.0-30.0) 05/10/18 18:00 MCHC Differential 33.2 pg (28.0-36.0) 05/10/18 18:00 RDW 12.6 % (11.5-20.0) 05/10/18 18:00 Plt Count 259 Th/cmm (150-400) 05/10/18 18:00 MPV 6.6 fl 05/10/18 18:00 Neutrophils % 66.9 % (40.0-80.0) 05/10/18 18:00 Lymphocytes % 21.6 % (20.0-50.0) 05/10/18 18:00 Monocytes % 7.9 % (2.0-10.0) 05/10/18 18:00 Eosinophils % 2.8 % (0.0-5.0) 05/10/18 18:00 Basophils % 0.8 % (0.0-2.0) 05/10/18 18:00 Sodium 139 mEq/L (136-145) 05/10/18 18:19 Potassium 4.5 mEq/L (3.5-5.1) 05/10/18 18: Chloride 104 mEq/L (98-107) 05/10/18 18:19 Carbon Dioxide 26.6 mEq/L (21.0-31.0) 05/10/18 18: Anion Gap 12.9 (7.0-16.0) 05/10/18 18:19 BUN 21 mg/dL (7-25) 05/10/18 18:19 Creatinine 1.0 mg/dL (0.7-1.3) 05/10/18 18:19 Est GFR ( Amer) > 60.0 ml/min (>90) 05/10/18 18:19 Est GFR (Non-Af Amer) > 60.0 ml/min 05/10/18 18:19 BUN/Creatinine Ratio 21.0 05/10/18 18:19 Glucose 161 mg/dL (70-105) H 05/10/18 18:19 Calcium 9.9 mg/dL (8.6-10.3) 05/10/18 18: Total Bilirubin 0.4 mg/dL (0.3-1.0) 05/10/18 18: AST 20 U/L (13-39) 05/10/18 18:19 ALT 16 U/L (7-52) 05/10/18 18:19 Alkaline Phosphatase 80 U/L (34-104) 05/10/18 18:19 Troponin I < 0.01 ng/mL (0.01-0.05) L 05/10/18 18:19 Total Protein 7.0 gm/dL (6.0-8.3) 05/10/18 18: Albumin 4.1 gm/dL (4.2-5.5) L 05/10/18 18:19 Globulin 2.9 gm/dL 05/10/18 18:19 Albumin/Globulin Ratio 1.4 (1.0-1.8) 05/10/18 18:19 Triglycerides 86 mg/dL (<150) 05/10/18 18:19 Cholesterol 128 mg/dL (<200) 05/10/18 18:19 LDL Cholesterol Direct 90 mg/dL (75-193) 05/10/18 18:19 HDL Cholesterol 42 mg/dL (23-92) 05/10/18 18:19 TSH 3.96 uIU/ml (0.34-5.60) 05/10/18 18:19 Salicylates < 25.0 mg/L (30.0-100.0) L 05/10/18 18:19 Acetaminophen < 10.0 ug/mL (10.0-30.0) L 05/10/18 18:19 Ethyl Alcohol < 10 mg/dL (0-10) 05/10/18 18:19 RPR NONREACTIVE (NONREACTIVE) 05/10/18 18:19 - Physical Exam Vitals and I&O: Vital Signs Temp 97.4 F 05/22/18 14:00 Pulse 80 05/22/18 14:00 Resp 19 05/22/18 14:00 BP 112/66 05/22/18 14:00 Pulse Ox 98 05/22/18 14:00 Intake & Output 05/22/18 05/22/18 05/23/18 06:59 18:59 06:59 Intake Total 240 1000 Balance 240 1000 Intake: Oral 240 1000 Other: # Voids 2 3 # Bowel Movements 1 Stool Characteristics Soft Brown Active Medications: Current Medications Acetaminophen (Tylenol) 650 mg PO Q4HR PRN PRN Reason: Mild Pain / Temp above 100 Stop: 07/10/18 00:15 Al Hydrox/Mg Hydrox/Simethicone (Maalox) 30 ml PO Q4HR PRN PRN Reason: GI DISTRESS Stop: 07/10/18 00:15 Bisacodyl (Dulcolax 10 Mg Supp) 10 mg RC DAILY PRN PRN Reason: Constipation Stop: 07/10/18 00:40 Clonazepam (Klonopin) 1 mg PO BID [facility]; Protocol Stop: 07/11/18 08:59 Last Admin: 05/22/18 10:37 Dose: Not Given Dextrose (Glutose 40%) 18.75 gm PO PRN PRN PRN Reason: Blood Glucose less than 70 Stop: 07/20/18 11:37 Folic Acid (Folate) 1 mg PO DAILY [facility] Stop: 07/10/18 08:59 Last Admin: 05/22/18 10:37 Dose: Not Given Glucagon (Glucagen) 1 mg IM PRN PRN PRN Reason: Blood Glucose less than 70 Stop: 07/20/18 11:37 Haloperidol Lactate (Haldol Concentrate 10mg/5ml Susp) 5 mg PO TID [facility]; Protocol Stop: 07/14/18 08:59 Last Admin: 05/22/18 14:29 Dose: Not Given Insulin Aspart (Novolog Insulin Sliding Scale) 0 units SUBQ ACHS [facility]; Protocol Stop: 07/20/18 16:29 Last Admin: 05/22/18 16:29 Dose: Not Given Lorazepam (Ativan) 0.5 mg PO Q4HR PRN; Protocol PRN Reason: Anxiety Stop: 06/10/18 00:15 Magnesium Hydroxide (Milk Of Magnesia) 30 ml PO HS PRN PRN Reason: Constipation Stop: 07/10/18 00:50 Quetiapine Fumarate (Seroquel) 100 mg PO BID [facility]; Protocol Stop: 07/17/18 16:59 Last Admin: 05/22/18 10:37 Dose: Not Given Thiamine HCl (Vitamin B1) 100 mg PO DAILY [facility] Stop: 07/10/18 08:59 Last Admin: 05/22/18 10:37 Dose: Not Given Zolpidem Tartrate (Ambien) 5 mg PO HS PRN PRN Reason: Insomnia Stop: 07/10/18 00:15 Last Admin: 05/13/18 21:06 Dose: 5 mg General: alert, demented HEENT: NC/AT, PERRLA, EOMI, anicteric sclerae, throat clear Neck: Supple, No JVD, No thyromegaly, +2 carotid pulse wo bruit, No LAD Lungs: CTAB Cardiovascular: RRR, Normal S1, Normal S2, without murmur Abdomen: soft, non-tender, non-distended Extremities: clear Neurological: no change Internal Medicine Assmt/Plan - Assessment Assessment: 1.DM. 2.DJD. 3.DEMENTIA. 4.PSYCHOSIS. - Plan Plan: CONTINUE ON CURRENT MEDICATION AND DIET. Nutritional Asmnt/Malnutr-PDOC - Dietary Evaluation Malnutrition Findings (Please click <Entered> for more info): Nutritional Asmnt/Malnutrition Start: 05/13/18 11: 02 Text: Status: Complete Freq: Protocol: Document 05/13/18 11:02 CHUY (Rec: 05/13/18 11:15 CHUY FISHER- [email or web address]) Nutritional Asmnt/Malnutrition Patient General Information Nutritional Screening Moderate Risk Diagnosis Psychosis Pertinent Medical Hx/Surgical Hx Diabetes, Degenerative joint disease, consitpation, dementia, psychosis, right BKA Subjective Information Spakish speaking patient per EMR. Tolerating current diet order without difficulty. Current Diet Order/ Nutrition Support 60gm CCHO Patient / S.O Not Indicated Pertinent Medications maalox, dulcolax, folate, MOM, Vitamin B1 Pertinent Labs WNL Nutritional Hx/Data Height 1.68 m Height (Calculated Centimeters) 167.6 Current Weight (lbs) 57.606 kg Weight (Calculated Kilograms) 57.6 Weight (Calculated Grams) 78776.2 Rebecca Body Weight 142 % Rebecca Body Weight 89 Body Mass Index (BMI) 20.5 Recent Weight Change No Weight Status Approriate GI Symptoms GI Symptoms Constipation Last BM 2 x1 Difficult in: None Food Allergies No Cultural/Ethnic/Samaritan Belief none indicated Usual diet at home unknown Skin Integrity/Comment: Elbert 18, intact Current %PO Good (75-100%) Estimated Nutritional Goals BEE in Kcals: Using Current wt Calories/Kcals/Kg 30-35 kcal/kg using CBW 57.7kg Kcals Calculated ~8405-1288 kcal/day Protein: Using Current wt Protein g/k-1.2 gm/kg Protein Calculated ~55-65gm/day Fluid: ml ~0272-3565 ml/day Nutritional Problem 1. Problem Problem No nutrition diagnosis at this time Intervention/Recommendation Comments Continue 60 gm CCHO diet as tolerated by patient. Expected Outcomes/Goals Expected Outcomes/Goals oral intake >75% of meals, weight stable or trend toward IBW, nutrition related labs WNL F/U LR 05/20
[2018-05-23] MEDS: Haldol Oral Sol.(concentrate) 10 mg/5 mL Udc PO SCH ×3 (09:48→20:17)
[2018-05-23] MEDS: INSULIN ASPART SLIDING SCALE 100 UNITS/ML UNIT SUBQ SCH ×4 (09:49→20:18)
--- NOTE | 2018-05-23 10:48 | Internal Medicine Prog Note ---
Internal Medicine Subjective - Subjective Service Date: 05/23/18 Patient seen and examined:: with staff (HE IS DOING BETTER,NO CHANGES.) Patient is:: awake, verbal, in bed, confused Per staff patient has:: no adverse event Internal Medicine Objective - Results Result Diagrams: 05/10/18 18:00 05/10/18 18:19 Recent Labs: Laboratory Last Values WBC 9.3 Th/cmm (4.8-10.8) 05/10/18 18:00 RBC 4.36 Mil/cmm (4.30-5.70) 05/10/18 18:00 Hgb 12.7 gm/dL (12-16) 05/10/18 18:00 Hct 38.4 % (41.0-60) L 05/10/18 18:00 MCV 88.0 fl (80-99) 05/10/18 18:00 MCH 29.2 pg (26.0-30.0) 05/10/18 18:00 MCHC Differential 33.2 pg (28.0-36.0) 05/10/18 18:00 RDW 12.6 % (11.5-20.0) 05/10/18 18:00 Plt Count 259 Th/cmm (150-400) 05/10/18 18:00 MPV 6.6 fl 05/10/18 18:00 Neutrophils % 66.9 % (40.0-80.0) 05/10/18 18:00 Lymphocytes % 21.6 % (20.0-50.0) 05/10/18 18:00 Monocytes % 7.9 % (2.0-10.0) 05/10/18 18:00 Eosinophils % 2.8 % (0.0-5.0) 05/10/18 18:00 Basophils % 0.8 % (0.0-2.0) 05/10/18 18:00 Sodium 139 mEq/L (136-145) 05/10/18 18:19 Potassium 4.5 mEq/L (3.5-5.1) 05/10/18 18:19 Chloride 104 mEq/L (98-107) 05/10/18 18:19 Carbon Dioxide 26.6 mEq/L (21.0-31.0) 05/10/18 18: Anion Gap 12.9 (7.0-16.0) 05/10/18 18:19 BUN 21 mg/dL (7-25) 05/10/18 18:19 Creatinine 1.0 mg/dL (0.7-1.3) 05/10/18 18:19 Est GFR ( Amer) > 60.0 ml/min (>90) 05/10/18 18:19 Est GFR (Non-Af Amer) > 60.0 ml/min 05/10/18 18:19 BUN/Creatinine Ratio 21.0 05/10/18 18:19 Glucose 161 mg/dL (70-105) H 05/10/18 18:19 Calcium 9.9 mg/dL (8.6-10.3) 05/10/18 18:19 Total Bilirubin 0.4 mg/dL (0.3-1.0) 05/10/18 18:19 AST 20 U/L (13-39) 05/10/18 18:19 ALT 16 U/L (7-52) 05/10/18 18:19 Alkaline Phosphatase 80 U/L (34-104) 05/10/18 18:19 Troponin I < 0.01 ng/mL (0.01-0.05) L 05/10/18 18:19 Total Protein 7.0 gm/dL (6.0-8.3) 05/10/18 18:19 Albumin 4.1 gm/dL (4.2-5.5) L 05/10/18 18:19 Globulin 2.9 gm/dL 05/10/18 18:19 Albumin/Globulin Ratio 1.4 (1.0-1.8) 05/10/18 18:19 Triglycerides 86 mg/dL (<150) 05/10/18 18:19 Cholesterol 128 mg/dL (<200) 05/10/18 18:19 LDL Cholesterol Direct 90 mg/dL (75-193) 05/10/18 18:19 HDL Cholesterol 42 mg/dL (23-92) 05/10/18 18:19 TSH 3.96 uIU/ml (0.34-5.60) 05/10/18 18:19 Salicylates < 25.0 mg/L (30.0-100.0) L 05/10/18 18:19 Acetaminophen < 10.0 ug/mL (10.0-30.0) L 05/10/18 18:19 Ethyl Alcohol < 10 mg/dL (0-10) 05/10/18 18:19 RPR NONREACTIVE (NONREACTIVE) 05/10/18 18:19 - Physical Exam Vitals and I&O: Vital Signs Temp 98.1 F 05/23/18 06:32 Pulse 82 05/23/18 06:32 Resp 20 05/23/18 06:32 BP 148/80 05/23/18 06:32 Pulse Ox 100 05/23/18 06:32 Intake & Output 05/22/18 05/23/18 05/23/18 18:59 06:59 18:59 Intake Total 1000 120 Balance 1000 120 Intake: Oral 1000 120 Other: # Voids 3 1 # Bowel Movements 1 1 Stool Characteristics Soft Soft Soft Brown Brown Brown Active Medications: Current Medications Acetaminophen (Tylenol) 650 mg PO Q4HR PRN PRN Reason: Mild Pain / Temp above 100 Stop: 07/10/18 00:15 Al Hydrox/Mg Hydrox/Simethicone (Maalox) 30 ml PO Q4HR PRN PRN Reason: GI DISTRESS Stop: 07/10/18 00:15 Bisacodyl (Dulcolax 10 Mg Supp) 10 mg RC DAILY PRN PRN Reason: Constipation Stop: 07/10/18 00:40 Clonazepam (Klonopin) 1 mg PO BID [facility]; Protocol Stop: 07/11/18 08:59 Last Admin: 05/23/18 09:47 Dose: Not Given Dextrose (Glutose 40%) 18.75 gm PO PRN PRN PRN Reason: Blood Glucose less than 70 Stop: 07/20/18 11:37 Folic Acid (Folate) 1 mg PO DAILY [facility] Stop: 07/10/18 08:59 Last Admin: 05/23/18 09:48 Dose: Not Given Glucagon (Glucagen) 1 mg IM PRN PRN PRN Reason: Blood Glucose less than 70 Stop: 07/20/18 11:37 Haloperidol Lactate (Haldol Concentrate 10mg/5ml Susp) 5 mg PO TID [facility]; Protocol Stop: 07/14/18 08:59 Last Admin: 05/23/18 09:48 Dose: Not Given Insulin Aspart (Novolog Insulin Sliding Scale) 0 units SUBQ ACHS [facility]; Protocol Stop: 07/20/18 16:29 Last Admin: 02/12/19 09:49 Dose: Not Given Lorazepam (Ativan) 0.5 mg PO Q4HR PRN; Protocol PRN Reason: Anxiety Stop: 06/10/18 00:15 Magnesium Hydroxide (Milk Of Magnesia) 30 ml PO HS PRN PRN Reason: Constipation Stop: 07/10/18 00:50 Quetiapine Fumarate (Seroquel) 100 mg PO BID [facility]; Protocol Stop: 07/17/18 16:59 Last Admin: 05/23/18 09:48 Dose: Not Given Thiamine HCl (Vitamin B1) 100 mg PO DAILY [facility] Stop: 07/10/18 08:59 Last Admin: 05/23/18 09:48 Dose: Not Given Zolpidem Tartrate (Ambien) 5 mg PO HS PRN PRN Reason: Insomnia Stop: 07/10/18 00:15 Last Admin: 05/13/18 21:06 Dose: 5 mg General: alert, demented HEENT: NC/AT, PERRLA, EOMI, anicteric sclerae, throat clear Neck: Supple, No JVD, No thyromegaly, +2 carotid pulse wo bruit, No LAD Lungs: CTAB Cardiovascular: RRR, Normal S1, Normal S2, without murmur Abdomen: soft, non-tender, non-distended Extremities: clear Neurological: no change Internal Medicine Assmt/Plan - Assessment Assessment: 1.DM. 2.DJD. 3.DEMENTIA. 4.PSYCHOSIS. - Plan Plan: CONTINUE ON CURRENT MEDICATION AND DIET. Nutritional Asmnt/Malnutr-PDOC - Dietary Evaluation Malnutrition Findings (Please click <Entered> for more info): Nutritional Asmnt/Malnutrition Start: 05/13/18 11: 02 Text: Status: Complete Freq: Protocol: Document 05/13/18 11:02 [email or web address] (Rec: 05/13/18 11:15 [email or web address] FISHRE- [email or web address]) Nutritional Asmnt/Malnutrition Patient General Information Nutritional Screening Moderate Risk Diagnosis Psychosis Pertinent Medical Hx/Surgical Hx Diabetes, Degenerative joint disease, consitpation, dementia, psychosis, right BKA Subjective Information Spakish speaking patient per EMR. Tolerating current diet order without difficulty. Current Diet Order/ Nutrition Support 60gm CCHO Patient / S.O Not Indicated Pertinent Medications maalox, dulcolax, folate, MOM, Vitamin B1 Pertinent Labs WNL Nutritional Hx/Data Height 1.68 m Height (Calculated Centimeters) 167.6 Current Weight (lbs) 57.606 kg Weight (Calculated Kilograms) 57.6 Weight (Calculated Grams) 57158.2 Louisa Body Weight 142 % Louisa Body Weight 89 Body Mass Index (BMI) 20.5 Recent Weight Change No Weight Status Approriate GI Symptoms GI Symptoms Constipation Last BM 2/ x1 Difficult in: None Food Allergies No Cultural/Ethnic/Bahai Belief none indicated Usual diet at home unknown Skin Integrity/Comment: Elbert 18, intact Current %PO Good (75-100%) Estimated Nutritional Goals BEE in Kcals: Using Current wt Calories/Kcals/Kg 30-35 kcal/kg using CBW 57.7kg Kcals Calculated ~2969-0278 kcal/day Protein: Using Current wt Protein g/k-1.2 gm/kg Protein Calculated ~55-65gm/day Fluid: ml ~8233-4427 ml/day Nutritional Problem 1. Problem Problem No nutrition diagnosis at this time Intervention/Recommendation Comments Continue 60 gm CCHO diet as tolerated by patient. Expected Outcomes/Goals Expected Outcomes/Goals oral intake >75% of meals, weight stable or trend toward IBW, nutrition related labs WNL F/U LR 05/20
--- NOTE | 2018-05-23 14:51 | Progress Notes ---
DATE: 05/22/2018 SUBJECTIVE: A 57-year-old male, transferred from [facility], increased agitation, irritability, angry, throwing objects towards staff, attacking staff in the room. The patient is refusing to speak with me, telling me to close the door and he is not going to answer any of my questions, just repeating to close the door. ASSESSMENT: The patient is refusing to speak with me, irritable, impulsive, unpredictable, ongoing safety concerns. Medications were noted. PLAN: We will continue to monitor. Given ongoing symptoms, he is not safe for discharge. Ongoing concerns, he may act out upon his impulses, strike out at others. JOB# [id number]
[2018-05-24] MEDS: INSULIN ASPART SLIDING SCALE 100 UNITS/ML UNIT SUBQ SCH ×4 (08:00→21:35)
[2018-05-24] MEDS: Haldol Oral Sol.(concentrate) 10 mg/5 mL Udc PO SCH ×3 (09:55→21:17)
--- NOTE | 2018-05-24 13:04 | Progress Notes ---
DATE: 05/23/2018 SUBJECTIVE: A 57-year-old male, transferred from [facility], increased agitation, aggressive behaviors, angry, irritable, throwing objects. On [id number], the patient is somewhat irritable, sometimes yelling, [place]ic speaking. The patient is refusing to talk to me once again today, very upset. The patient not wanted to take his meds sometimes, slept for about 6 hours, poor orientation and unfortunately unable to really talk to him because he is angry and does not want to talk to me. ASSESSMENT: The patient is irritable, upset, refusing treatment at times. PLAN: We will continue to monitor. The patient remains impulsive, unpredictable, ongoing safety concerns, anger. [facility]# [id number]
--- NOTE | 2018-05-24 20:17 | Internal Medicine Prog Note ---
Internal Medicine Subjective - Subjective Service Date: 05/24/18 Patient seen and examined:: with staff Patient is:: awake, verbal, in bed, confused Per staff patient has:: no adverse event Internal Medicine Objective - Results Result Diagrams: 05/10/18 18:00 05/10/18 18:19 Recent Labs: Laboratory Last Values WBC 9.3 Th/cmm (4.8-10.8) 05/10/18 18:00 RBC 4.36 Mil/cmm (4.30-5.70) 05/10/18 18:00 Hgb 12.7 gm/dL (12-16) 05/10/18 18:00 Hct 38.4 % (41.0-60) L 05/10/18 18:00 MCV 88.0 fl (80-99) 05/10/18 18:00 MCH 29.2 pg (26.0-30.0) 05/10/18 18:00 MCHC Differential 33.2 pg (28.0-36.0) 05/10/18 18:00 RDW 12.6 % (11.5-20.0) 05/10/18 18:00 Plt Count 259 Th/cmm (150-400) 05/10/18 18:00 MPV 6.6 fl 05/10/18 18:00 Neutrophils % 66.9 % (40.0-80.0) 05/10/18 18:00 Lymphocytes % 21.6 % (20.0-50.0) 05/10/18 18:00 Monocytes % 7.9 % (2.0-10.0) 05/10/18 18:00 Eosinophils % 2.8 % (0.0-5.0) 05/10/18 18:00 Basophils % 0.8 % (0.0-2.0) 05/10/18 18:00 Sodium 139 mEq/L (136-145) 05/10/18 18:19 Potassium 4.5 mEq/L (3.5-5.1) 05/10/18 18: Chloride 104 mEq/L (98-107) 05/10/18 18:19 Carbon Dioxide 26.6 mEq/L (21.0-31.0) 05/10/18 18: Anion Gap 12.9 (7.0-16.0) 05/10/18 18:19 BUN 21 mg/dL (7-25) 05/10/18 18:19 Creatinine 1.0 mg/dL (0.7-1.3) 05/10/18 18:19 Est GFR ( Amer) > 60.0 ml/min (>90) 05/10/18 18:19 Est GFR (Non-Af Amer) > 60.0 ml/min 05/10/18 18:19 BUN/Creatinine Ratio 21.0 05/10/18 18:19 Glucose 161 mg/dL (70-105) H 05/10/18 18:19 Calcium 9.9 mg/dL (8.6-10.3) 05/10/18 18: Total Bilirubin 0.4 mg/dL (0.3-1.0) 05/10/18 18: AST 20 U/L (13-39) 05/10/18 18:19 ALT 16 U/L (7-52) 05/10/18 18:19 Alkaline Phosphatase 80 U/L (34-104) 05/10/18 18:19 Troponin I < 0.01 ng/mL (0.01-0.05) L 05/10/18 18:19 Total Protein 7.0 gm/dL (6.0-8.3) 05/10/18 18: Albumin 4.1 gm/dL (4.2-5.5) L 05/10/18 18:19 Globulin 2.9 gm/dL 05/10/18 18:19 Albumin/Globulin Ratio 1.4 (1.0-1.8) 05/10/18 18:19 Triglycerides 86 mg/dL (<150) 05/10/18 18:19 Cholesterol 128 mg/dL (<200) 05/10/18 18:19 LDL Cholesterol Direct 90 mg/dL (75-193) 05/10/18 18:19 HDL Cholesterol 42 mg/dL (23-92) 05/10/18 18:19 TSH 3.96 uIU/ml (0.34-5.60) 05/10/18 18:19 Salicylates < 25.0 mg/L (30.0-100.0) L 05/10/18 18:19 Acetaminophen < 10.0 ug/mL (10.0-30.0) L 05/10/18 18:19 Ethyl Alcohol < 10 mg/dL (0-10) 05/10/18 18:19 RPR NONREACTIVE (NONREACTIVE) 05/10/18 18:19 - Physical Exam Vitals and I&O: Vital Signs Temp 97.9 F 05/24/18 14:00 Pulse 74 05/24/18 14:00 Resp 16 05/24/18 14:00 BP 114/57 05/24/18 14:00 Pulse Ox 93 05/24/18 14:00 Intake & Output 05/24/18 05/24/18 05/25/18 06:59 18:59 06:59 Intake Total 240 1300 Balance 240 1300 Intake: Oral 240 1300 Other: # Voids 3 3 # Bowel Movements 0 1 Stool Characteristics Soft Soft Brown Brown Active Medications: Current Medications Acetaminophen (Tylenol) 650 mg PO Q4HR PRN PRN Reason: Mild Pain / Temp above 100 Stop: 07/10/18 00:15 Al Hydrox/Mg Hydrox/Simethicone (Maalox) 30 ml PO Q4HR PRN PRN Reason: GI DISTRESS Stop: 07/10/18 00:15 Bisacodyl (Dulcolax 10 Mg Supp) 10 mg RC DAILY PRN PRN Reason: Constipation Stop: 07/10/18 00:40 Clonazepam (Klonopin) 1 mg PO BID [facility]; Protocol Stop: 07/11/18 08:59 Last Admin: 05/24/18 16:53 Dose: Not Given Dextrose (Glutose 40%) 18.75 gm PO PRN PRN PRN Reason: Blood Glucose less than 70 Stop: 07/20/18 11:37 Folic Acid (Folate) 1 mg PO DAILY [facility] Stop: 07/10/18 08:59 Last Admin: 05/24/18 09:55 Dose: Not Given Glucagon (Glucagen) 1 mg IM PRN PRN PRN Reason: Blood Glucose less than 70 Stop: 07/20/18 11:37 Haloperidol Lactate (Haldol Concentrate 10mg/5ml Susp) 5 mg PO TID [facility]; Protocol Stop: 07/14/18 08:59 Last Admin: 05/24/18 14:47 Dose: Not Given Insulin Aspart (Novolog Insulin Sliding Scale) 0 units SUBQ ACHS [facility]; Protocol Stop: 07/20/18 16:29 Last Admin: 05/24/18 16:53 Dose: Not Given Lorazepam (Ativan) 0.5 mg PO Q4HR PRN; Protocol PRN Reason: Anxiety Stop: 06/10/18 00:15 Magnesium Hydroxide (Milk Of Magnesia) 30 ml PO HS PRN PRN Reason: Constipation Stop: 07/10/18 00:50 Quetiapine Fumarate (Seroquel) 100 mg PO BID [facility]; Protocol Stop: 07/17/18 16:59 Last Admin: 05/24/18 16:53 Dose: Not Given Thiamine HCl (Vitamin B1) 100 mg PO DAILY [facility] Stop: 07/10/18 08:59 Last Admin: 05/24/18 09:56 Dose: Not Given Zolpidem Tartrate (Ambien) 5 mg PO HS PRN PRN Reason: Insomnia Stop: 07/10/18 00:15 Last Admin: 05/13/18 21:06 Dose: 5 mg General: alert, demented HEENT: NC/AT, PERRLA, EOMI, anicteric sclerae, throat clear Neck: Supple, No JVD, No thyromegaly, +2 carotid pulse wo bruit, No LAD Lungs: CTAB Cardiovascular: RRR, Normal S1, Normal S2, without murmur Abdomen: soft, non-tender, non-distended Extremities: clear Neurological: no change Internal Medicine Assmt/Plan - Assessment Assessment: 1.DM. 2.DJD. 3.DEMENTIA. 4.PSYCHOSIS. - Plan Plan: CONTINUE ON CURRENT MEDICATION AND DIET. Nutritional Asmnt/Malnutr-PDOC - Dietary Evaluation Malnutrition Findings (Please click <Entered> for more info): Nutritional Asmnt/Malnutrition Start: 05/13/18 11: 02 Text: Status: Complete Freq: Protocol: Document 05/13/18 11:02 CHUY (Rec: 05/13/18 11:15 CHUY FISHER- [email or web address]) Nutritional Asmnt/Malnutrition Patient General Information Nutritional Screening Moderate Risk Diagnosis Psychosis Pertinent Medical Hx/Surgical Hx Diabetes, Degenerative joint disease, consitpation, dementia, psychosis, right BKA Subjective Information Spakish speaking patient per EMR. Tolerating current diet order without difficulty. Current Diet Order/ Nutrition Support 60gm CCHO Patient / S.O Not Indicated Pertinent Medications maalox, dulcolax, folate, MOM, Vitamin B1 Pertinent Labs WNL Nutritional Hx/Data Height 1.68 m Height (Calculated Centimeters) 167.6 Current Weight (lbs) 57.606 kg Weight (Calculated Kilograms) 57.6 Weight (Calculated Grams) 99320.2 [place] Body Weight 142 % [place] Body Weight 89 Body Mass Index (BMI) 20.5 Recent Weight Change No Weight Status Approriate GI Symptoms GI Symptoms Constipation Last BM 2/ x1 Difficult in: None Food Allergies No Cultural/Ethnic/Adventism Belief none indicated Usual diet at home unknown Skin Integrity/Comment: Elbert 18, intact Current %PO Good (75-100%) Estimated Nutritional Goals BEE in Kcals: Using Current wt Calories/Kcals/Kg 30-35 kcal/kg using CBW 57.7kg Kcals Calculated ~0708-3602 kcal/day Protein: Using Current wt Protein g/k-1.2 gm/kg Protein Calculated ~55-65gm/day Fluid: ml ~6483-1097 ml/day Nutritional Problem 1. Problem Problem No nutrition diagnosis at this time Intervention/Recommendation Comments Continue 60 gm CCHO diet as tolerated by patient. Expected Outcomes/Goals Expected Outcomes/Goals oral intake >75% of meals, weight stable or trend toward IBW, nutrition related labs WNL F/U LR 05/20
[2018-05-25] MEDS: INSULIN ASPART SLIDING SCALE 100 UNITS/ML UNIT SUBQ SCH ×3 (06:51→17:25)
[2018-05-25] MEDS: Haldol Oral Sol.(concentrate) 10 mg/5 mL Udc PO SCH ×2 (08:18→13:30)
--- NOTE | 2018-05-25 13:08 | Progress Notes ---
DATE: 05/24/2018 SUBJECTIVE: The patient in the hospital, does not want to talk to me "don't ask me any questions." He is telling me that he lives here in the hospital, he states this is not a hospital, he tells me his family travels in a helicopter, he is not really making any sense, angry, irritable, mostly just wants to be left alone, withdrawn in his bed, slept about 8 hours last night, poorly oriented and making bizarre comments. Staff noting to have a hard time communicating with him because he refuses to speak with them and noted to be irritable, verbally abusive towards staff, sometimes refusing care. ASSESSMENT: The patient easily agitated, upset. The patient ____ speak with me, sometimes refusing medications. I will continue to monitor. Given his irritability, isolation and ongoing behavioral disturbances, he is not safe for discharge. JOB# [id number]
--- NOTE | 2018-05-25 16:34 | Internal Medicine Prog Note ---
Internal Medicine Subjective - Subjective Service Date: 05/25/18 Patient seen and examined:: with staff Patient is:: awake, verbal, in bed, confused Per staff patient has:: no adverse event Internal Medicine Objective - Results Result Diagrams: 05/10/18 18:00 05/10/18 18:19 Recent Labs: Laboratory Last Values WBC 9.3 Th/cmm (4.8-10.8) 05/10/18 18:00 RBC 4.36 Mil/cmm (4.30-5.70) 05/10/18 18:00 Hgb 12.7 gm/dL (12-16) 05/10/18 18:00 Hct 38.4 % (41.0-60) L 05/10/18 18:00 MCV 88.0 fl (80-99) 05/10/18 18:00 MCH 29.2 pg (26.0-30.0) 05/10/18 18:00 MCHC Differential 33.2 pg (28.0-36.0) 05/10/18 18:00 RDW 12.6 % (11.5-20.0) 05/10/18 18:00 Plt Count 259 Th/cmm (150-400) 05/10/18 18:00 MPV 6.6 fl 05/10/18 18:00 Neutrophils % 66.9 % (40.0-80.0) 05/10/18 18:00 Lymphocytes % 21.6 % (20.0-50.0) 05/10/18 18:00 Monocytes % 7.9 % (2.0-10.0) 05/10/18 18:00 Eosinophils % 2.8 % (0.0-5.0) 05/10/18 18:00 Basophils % 0.8 % (0.0-2.0) 05/10/18 18:00 Sodium 139 mEq/L (136-145) 05/10/18 18:19 Potassium 4.5 mEq/L (3.5-5.1) 05/10/18 18: Chloride 104 mEq/L (98-107) 05/10/18 18:19 Carbon Dioxide 26.6 mEq/L (21.0-31.0) 05/10/18 18: Anion Gap 12.9 (7.0-16.0) 05/10/18 18:19 BUN 21 mg/dL (7-25) 05/10/18 18:19 Creatinine 1.0 mg/dL (0.7-1.3) 05/10/18 18:19 Est GFR ( Amer) > 60.0 ml/min (>90) 05/10/18 18:19 Est GFR (Non-Af Amer) > 60.0 ml/min 05/10/18 18:19 BUN/Creatinine Ratio 21.0 05/10/18 18:19 Glucose 161 mg/dL (70-105) H 05/10/18 18:19 Calcium 9.9 mg/dL (8.6-10.3) 05/10/18 18: Total Bilirubin 0.4 mg/dL (0.3-1.0) 05/10/18 18: AST 20 U/L (13-39) 05/10/18 18:19 ALT 16 U/L (7-52) 05/10/18 18:19 Alkaline Phosphatase 80 U/L (34-104) 05/10/18 18:19 Troponin I < 0.01 ng/mL (0.01-0.05) L 05/10/18 18:19 Total Protein 7.0 gm/dL (6.0-8.3) 05/10/18 18: Albumin 4.1 gm/dL (4.2-5.5) L 05/10/18 18:19 Globulin 2.9 gm/dL 05/10/18 18:19 Albumin/Globulin Ratio 1.4 (1.0-1.8) 05/10/18 18:19 Triglycerides 86 mg/dL (<150) 05/10/18 18:19 Cholesterol 128 mg/dL (<200) 05/10/18 18:19 LDL Cholesterol Direct 90 mg/dL (75-193) 05/10/18 18:19 HDL Cholesterol 42 mg/dL (23-92) 05/10/18 18:19 TSH 3.96 uIU/ml (0.34-5.60) 05/10/18 18:19 Salicylates < 25.0 mg/L (30.0-100.0) L 05/10/18 18:19 Acetaminophen < 10.0 ug/mL (10.0-30.0) L 05/10/18 18:19 Ethyl Alcohol < 10 mg/dL (0-10) 05/10/18 18:19 RPR NONREACTIVE (NONREACTIVE) 05/10/18 18:19 - Physical Exam Vitals and I&O: Vital Signs Temp 97.9 F 05/25/18 14:00 Pulse 81 05/25/18 14:00 Resp 18 05/25/18 14:00 BP 102/57 05/25/18 14:00 Pulse Ox 98 05/25/18 14:00 Intake & Output 05/24/18 05/25/18 05/25/18 18:59 06:59 18:59 Intake Total 1300 120 Balance 1300 120 Intake: Oral 1300 120 Other: # Voids 3 3 # Bowel Movements 1 Stool Characteristics Soft Soft Brown Brown Active Medications: Current Medications Acetaminophen (Tylenol) 650 mg PO Q4HR PRN PRN Reason: Mild Pain / Temp above 100 Stop: 07/10/18 00:15 Al Hydrox/Mg Hydrox/Simethicone (Maalox) 30 ml PO Q4HR PRN PRN Reason: GI DISTRESS Stop: 07/10/18 00:15 Bisacodyl (Dulcolax 10 Mg Supp) 10 mg RC DAILY PRN PRN Reason: Constipation Stop: 07/10/18 00:40 Clonazepam (Klonopin) 1 mg PO BID [facility]; Protocol Stop: 07/11/18 08:59 Last Admin: 05/25/18 08:18 Dose: Not Given Dextrose (Glutose 40%) 18.75 gm PO PRN PRN PRN Reason: Blood Glucose less than 70 Stop: 07/20/18 11:37 Folic Acid (Folate) 1 mg PO DAILY [facility] Stop: 07/10/18 08:59 Last Admin: 05/25/18 08:18 Dose: Not Given Glucagon (Glucagen) 1 mg IM PRN PRN PRN Reason: Blood Glucose less than 70 Stop: 07/20/18 11:37 Haloperidol Lactate (Haldol Concentrate 10mg/5ml Susp) 5 mg PO TID [facility]; Protocol Stop: 07/14/18 08:59 Last Admin: 05/25/18 13:30 Dose: Not Given Insulin Aspart (Novolog Insulin Sliding Scale) 0 units SUBQ ACHS [facility]; Protocol Stop: 07/20/18 16:29 Last Admin: 05/25/18 11:21 Dose: Not Given Lorazepam (Ativan) 0.5 mg PO Q4HR PRN; Protocol PRN Reason: Anxiety Stop: 06/10/18 00:15 Magnesium Hydroxide (Milk Of Magnesia) 30 ml PO HS PRN PRN Reason: Constipation Stop: 07/10/18 00:50 Quetiapine Fumarate (Seroquel) 100 mg PO BID [facility]; Protocol Stop: 07/17/18 16:59 Last Admin: 05/25/18 08:18 Dose: Not Given Thiamine HCl (Vitamin B1) 100 mg PO DAILY [facility] Stop: 07/10/18 08:59 Last Admin: 05/25/18 08:18 Dose: Not Given Zolpidem Tartrate (Ambien) 5 mg PO HS PRN PRN Reason: Insomnia Stop: 07/10/18 00:15 Last Admin: 05/13/18 21:06 Dose: 5 mg General: alert, demented HEENT: NC/AT, PERRLA, EOMI, anicteric sclerae, throat clear Neck: Supple, No JVD, No thyromegaly, +2 carotid pulse wo bruit, No LAD Lungs: CTAB Cardiovascular: RRR, Normal S1, Normal S2, without murmur Abdomen: soft, non-tender, non-distended Extremities: clear Neurological: no change Internal Medicine Assmt/Plan - Assessment Assessment: 1.DM. 2.DJD. 3.DEMENTIA. 4.PSYCHOSIS. - Plan Plan: CONTINUE ON CURRENT MEDICATION AND DIET. Nutritional Asmnt/Malnutr-PDOC - Dietary Evaluation Malnutrition Findings (Please click <Entered> for more info): Nutritional Asmnt/Malnutrition Start: 05/13/18 11: 02 Text: Status: Complete Freq: Protocol: Document 05/13/18 11:02 CHUY (Rec: 05/13/18 11:15 CHUY FISHER- [email or web address]) Nutritional Asmnt/Malnutrition Patient General Information Nutritional Screening Moderate Risk Diagnosis Psychosis Pertinent Medical Hx/Surgical Hx Diabetes, Degenerative joint disease, consitpation, dementia, psychosis, right BKA Subjective Information Spakish speaking patient per EMR. Tolerating current diet order without difficulty. Current Diet Order/ Nutrition Support 60gm CCHO Patient / S.O Not Indicated Pertinent Medications maalox, dulcolax, folate, MOM, Vitamin B1 Pertinent Labs WNL Nutritional Hx/Data Height 1.68 m Height (Calculated Centimeters) 167.6 Current Weight (lbs) 57.606 kg Weight (Calculated Kilograms) 57.6 Weight (Calculated Grams) 74756.2 [place] Body Weight 142 % [place] Body Weight 89 Body Mass Index (BMI) 20.5 Recent Weight Change No Weight Status Approriate GI Symptoms GI Symptoms Constipation Last BM 2 x1 Difficult in: None Food Allergies No Cultural/Ethnic/Zoroastrianism Belief none indicated Usual diet at home unknown Skin Integrity/Comment: Elbert 18, intact Current %PO Good (75-100%) Estimated Nutritional Goals BEE in Kcals: Using Current wt Calories/Kcals/Kg 30-35 kcal/kg using CBW 57.7kg Kcals Calculated ~0990-2169 kcal/day Protein: Using Current wt Protein g/k-1.2 gm/kg Protein Calculated ~55-65gm/day Fluid: ml ~5186-4209 ml/day Nutritional Problem 1. Problem Problem No nutrition diagnosis at this time Intervention/Recommendation Comments Continue 60 gm CCHO diet as tolerated by patient. Expected Outcomes/Goals Expected Outcomes/Goals oral intake >75% of meals, weight stable or trend toward IBW, nutrition related labs WNL F/U LR 05/20
--- NOTE | 2018-05-25 22:45 | Discharge Summary ---
DATE OF DISCHARGE: 05/25/2018 PATIENT'S AGE: 57. SEX: Male. PHYSICIAN: Sheila Franklin MD, MPH FINAL DIAGNOSES: PRIMARY DIAGNOSIS: Schizophrenic disorder. MEDICAL DIAGNOSES: 1. Diabetes mellitus. 2. Right below-knee amputation. 3. Anemia. REASON FOR HOSPITALIZATION: The patient was admitted to the hospital because of increased agitation and aggressive behavior and inability to follow directions in the [facility] where he lives. HOSPITAL COURSE: The patient continued to be agitated and in irritable mood. The patient also is still restless and still was using foul language and refused to take medication and wants to be left alone and was uncooperative in regard to his vital signs or any lab work. The patient was and then was approved, then patient started to take Seroquel and the dose adjusted to 100 mg twice a day. He also was continued to take his insulin. The patient also is giving Haldol concentrate when he was refusing to take the tablet. Gradually, the patient was calmer and was less agitated and less irritable and the patient was discharged back to [facility]. Physical exam of the patient basically showed no major medical problems except the patient had diabetes mellitus and below-knee amputation as mentioned earlier. AFTER DISCHARGE PLANS: The patient discharged from the hospital back to [facility] with plans for followup there. EXPECTED OUTCOME AFTER DISCHARGE: Fair if the patient continues with his treatment and take his psychotropic medications. [facility]# [id number]
== END 2018-05-25 18:50 | DRG 885 ==
LOC: ER 18:16 → GERO2 21:05 → GERO 05-17 05:40
PROVIDERS: ADMIT Psychiatry & Neurology Psychiatry; ATTEND Psychiatry & Neurology Psychiatry
DX: F20.9 Schizophrenia, unspecified (principal); E11.9 Type 2 diabetes mellitus without complications; M19.90 Unspecified osteoarthritis, unspecified site; F03.90 Unspecified dementia, unspecified severity, without behavioral disturbance, psychotic disturbance, mood disturbance, and anxiety; I10 Essential (primary) hypertension; E78.5 Hyperlipidemia, unspecified; K21.9 Gastro-esophageal reflux disease without esophagitis; F29 Unspecified psychosis not due to a substance or known physiological condition; F31.9 Bipolar disorder, unspecified; D64.9 Anemia, unspecified; Z89.511 Acquired absence of right leg below knee; Z83.3 Family history of diabetes mellitus; Z82.49 Family history of ischemic heart disease and other diseases of the circulatory system
CPT/HCPCS: 36415-UA; 80053-TC; 80061-TC; 80320-TC; 80329-TC; 83036-90; 84443-TC; 84484-TC; 85025-TC; 86592-TC; J1200; J1630; J1815; J2060; Z7610